=== PATIENT | female | born 1965 | race Caucasian/White ===

== ENCOUNTER 2022-01-06 10:25 | Emergency (ER) | payer OTHER, SELFPAY ==
[2022-01-06 10:29] VITALS: BP 160/88; PULSE 64; RESP 18; TEMP 36.9; O2SAT 99; BMI 59.4
--- NOTE | 2022-01-06 10:54 | CRLHL7_ITS ---
For Patients: As a result of the Century Cures Act, medical imaging exams and procedure reports are released immediately into your electronic medical record. You may view this report before your referring provider. If you have questions, please contact your health care provider. Indication: Pain and swelling. Possible foreign object. Technique: Spiral CT examination of the wrist is performed without intravenous contrast to obtain 1 millimeter thick sagittal, axial, and coronal sections. Please note that all CT scans at this facility use dose modulation, iterative reconstruction, and/or weight-based dosing when appropriate to reduce radiation dose to as low as reasonably achievable. Comparison: Plain films of the wrist from today at 0959 hours Findings: The area of swelling adjacent to the distal ulna is seen to be a combination of heterogeneous, coarse, soft tissue calcifications along with overlying subcutaneous swelling and edema. This is associated with well-circumscribed lytic destruction of the dorsal aspect of the distal ulna at the base of the ulnar styloid, extending into the ulnar styloid itself there is also well-circumscribed lucency of the ununited accessory ossification center of the ulnar styloid. I do not see any distinct radiopaque or radiolucent foreign body. The soft tissue ossifications are in a linear configuration extending from the dorsal subcutaneous tissues, along the radial aspect of the ulnar styloid and accessory ossification center of the ulnar styloid, to reach the volar juxta-articular muscle bellies. This does raise the possibility of a foreign body granuloma from a penetrating injury. The osseous destruction is consistent with low-grade osteomyelitis. No distinct drainable abscess is present. There is no sign of any soft tissue gas. There is mild widening of the scapholunate articulation, suggesting partial disruption or laxity of the scapholunate ligament. There is no sign of any additional osseous abnormality. The soft tissues elsewhere are normal in appearance. I discussed the findings with Dr. Pereira at 1212 hours on 01/06/2022. Impression: Heterogeneous, irregular, coarse calcifications of the soft tissue adjacent to the distal ulna and ulnar styloid, extending in a linear arrangement from the dorsal subcutaneous fat, along the radial aspect of the ulnar styloid, to reach the muscle belly dorsal to the distal ulna. 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 No sign of any radiopaque or radiolucent foreign body. No sign of soft tissue gas. No sign of drainable abscess. Consider low-grade chronic infection from previous penetrating injury versus unusual infection such as tuberculosis, CARMEN, were fungus. Please note that all CT scans at this facility use dose modulation, iterative reconstruction, and/or weight-based dosing when appropriate to reduce radiation dose to as low as reasonably achievable. Dictated by Dion Montalvo MD @ 01/06/2022 12:16:47 PM (Electronically Signed)
--- NOTE | 2022-01-06 10:57 | ED.GENADULT ---
HPI - General Adult General Chief complaint: Extremity Pain/Injury, Upper Stated complaint: Wrist swollen and painful, possibly septic Time Seen by Provider: 01/06/22 10:46 History of Present Illness HPI narrative: This 56-year-old female comes in with pain in her left wrist. She came from urgent care where she had an x-ray which showed soft tissue swelling but a radiologist called to the physician's therapist's assistant there stating that there appeared to be possibly some kind of osseous structure in the ulnar aspect of her left wrist. The patient comes here for further evaluation. There was a suspicion of a septic joint however she does not have any tenderness on the radial aspect of the left wrist joint. She does have a history of iritis and has been on steroid at times. There has been some suspicion in the past of rheumatologic condition underlying some of these symptoms. She does not have any history of gout. There is no report of any injury event. Related Data Home Medications Medication Instructions Recorded Confirmed metoprolol succinate 50 mg 50 mg PO DAILY 10/04/21 01/06/22 tablet,extended release 24 hr triamterene 37.5 1 tab PO DAILY 10/04/21 01/06/22 mg-hydrochlorothiazide 25 mg tablet Previous Rx's Medication Instructions Recorded gemfibrozil 600 mg tablet 600 mg PO BID Hyperlipidemia #180 10/09/21 tabs methylprednisolone 4 mg tablets in See Rx Instructions PO PER PKG DIR 10/10/21 a dose pack (Medrol (Pankaj)) Iritis #21 ea sulfamethoxazole 800 1 tab PO BID UTI #10 tabs 10/10/21 mg-trimethoprim 160 mg tablet (Bactrim DS) ketorolac 10 mg tablet 10 mg PO Q8H 5 days #15 tabs 01/06/22 methylprednisolone 4 mg tablets in See Rx Instructions PO .COMPLEX 01/06/22 a dose pack (Medrol (Pankaj)) #21 ea Allergies Allergy/AdvReac Type Severity Reaction Status Date / Time cephalexin Allergy Mild itchy, rash Verified 01/06/22 09:39 nitrofurantoin AdvReac Severe throat Verified 01/06/22 09:39 swelling Review of Systems Status of ROS: Reports: 10 or more systems reviewed and unremarkable except as noted in History and below Narrative: Constitutional: No fevers, no weight gain or loss. Eyes: No discharge. No vision changes. HENT: No congestion, no sore throat, no ear pain. Cardiovascular: No chest pain, no palpitations. Respiratory: No shortness of breath, no wheezes, no cough. Gastrointestinal: No abdominal pain, no vomiting, no diarrhea. Genitourinary: No dysuria, no hematuria. Musculoskeletal: Left wrist pain and swelling on the ulnar aspect with decreased range of motion. Skin: No rashes, no pruritis. Neurological: No dizziness, weakness, sensory change, speech change. Endo/Heme/Allergies: No bruising or bleeding. No polydipsia. Pysch: no suicidality, no anxiety, no insomnia. All other systems reviewed and are negative. [facility] Medical History (Updated 01/06/22 @ 12:41 by Sandoval Krishnan MD) UTI (urinary tract infection) Family History (Updated 09/24/21 @ 13:51 by Shahzad Reyna) Other Colon cancer Social History Smoking Status: Never smoker Do you use any of these nicotine containing products: None Second hand tobacco smoke exposure: No How often do you have a drink containing alcohol: never How often do you have six or more drinks on one occasion: Never AUDIT-C Alcohol total score: 0 Non-prescribed substance use: denies use Exam Narrative: Exam Narrative: Constitutional: Well-developed, well-nourished, no acute distress. HEENT: Normocephalic, atraumatic. Neck: Normal range of motion. Nontender. Supple. Heart: Intact distal pulses. Lungs: No chest discomfort. No wheezes, rhonchi, or rales. Abdomen: Nontender. Back: Normal range of motion. Extremities: Mild swelling and erythema of the ulnar aspect of the left wrist with associated decreased range of motion. Skin: Intact. No rash. Warm. No erythema or pallor. Neurologic: No altered sensation. No weakness. Alert and oriented. Psychiatric: No suicidality. No anxiety or depression. No insomnia. Nursing notes and vitals signs are reviewed. Const: Vital Signs, click to edit/add: Vital Signs - 24 hr 01/06/22 10:29 Temperature 98.4 F Pulse Rate [Pulse Oximeter] 64 Respiratory Rate 18 Blood Pressure [Ri ght Upper Arm] 160/88 H Pulse Oximetry 99 Oxygen Delivery Me thod Room Air Course Vital Signs Vital signs: Initial Vital Signs Temperature 98.4 F 01/06/22 10:29 Temperature Source Temporal Artery Scan 01/06/22 10:29 Pulse Rate 64 01/06/22 10:29 Respiratory Rate 18 01/06/22 10:29 Blood Pressure 160/88 H 01/06/22 10:29 Blood Pressure Mean 112 01/06/22 10:29 Blood Pressure Position Supine 01/06/22 10:29 Pulse Oximetry 99 01/06/22 10:29 Oxygen Delivery Method 01/06/22 10:29 Vital Signs Temperature 98.4 F 01/06/22 10:29 Pulse Rate 64 01/06/22 10:29 Respiratory Rate 18 01/06/22 10:29 Blood Pressure 160/88 H 01/06/22 10:29 Pulse Oximetry 99 01/06/22 10:29 Oxygen Delivery Method 01/06/22 10:29 Temperature 98.4 F 01/06/22 10:29 Pulse Rate 64 01/06/22 10:29 Respiratory Rate 18 01/06/22 10:29 Blood Pressure 160/88 H 01/06/22 10:29 Pulse Oximetry 99 01/06/22 10:29 Oxygen Delivery Method 01/06/22 10:29 Medical Decision Making MDM Narrative Medical decision making narrative: This patient comes in with pain in the ulnar aspect of her left wrist. She was seen in urgent care and sent here for further evaluation and treatment. She did not have any tenderness on the radial aspect. A joint infection or septic joint would spread through the joint and typically involve the radial aspect along with the ulnar side of the joint. Lab results returned with normal findings except for elevated uric acid level which would explain her symptoms as coming from gout. This is a new diagnosis for her. She did receive prescriptions for Medrol Dosepak and Toradol. I advised her regarding the pathophysiology of gout and instructed her on diet issues related to this. Lab Data Labs: Lab Results 01/06/22 01/06/22 01/06/22 Range/Units 11:00 11:00 11:00 WBC 7.85 (4.50-11.00) K/uL RBC 4.29 (4.00-5.20) m/uL Hgb 13.1 (12.0-16.0) gm/dL Hct 38.5 (33.0-51.0) % MCV 90 (80-100) fL MCH 31 (26-34) pg MCHC 34 (32-36) gm/dL RDW Coeff of Kala 11.8 (11.5-15.5) % Plt Count 296 (140-440) K/uL Neut % (Auto) 61.5 (42.0-72.0) % Lymph % (Auto) 26.2 (20-44) % Brantley % (Auto) 10.2 (0.0-11.0) % Eos % (Auto) 1.5 (0.0-7.0) % Baso % (Auto) 0.3 (0.0-3.0) % Neut # (Auto) 4.83 (1.7-7.0) K/uL Lymph # (Auto) 2.06 (0.90-2.90) K/uL Brantley # (Auto) 0.80 (0.00-0.90) K/UL Eos # (Auto) 0.12 (0.00-0.50) K/uL Baso # (Auto) 0.02 (0.00-0.30) K/uL Abs Immat Gran (auto) 0.02 (0.00-0.30) K/uL ESR 18 (2-20) mm/hr Sodium 139 (135-149) mmol/L Potassium 3.9 (3.6-5.1) mmol/L Chloride 98 (96-114) mmol/L Carbon Dioxide 28 (20-32) mmol/L BUN 20 (7-30) mg/dL Creatinine 0.6 (0.5-1.5) mg/dL Estimated Creat Clear 84.54 Estimated GFR 104 ml/min Glucose 101 (60-115) mg/dL Uric Acid 10.1 H (2.2-8.4) mg/dL Calcium 10.1 (8.4-10.6) mg/dL Imaging Data CT L Wrist: Radiologist's impression: Heterogeneous, irregular, coarse calcifications of the soft tissue adjacent to the distal ulna and ulnar styloid, extending in a linear arrangement from the dorsal subcutaneous fat, along the radial aspect of the ulnar styloid, to reach the muscle belly dorsal to the distal ulna. 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 No sign of any radiopaque or radiolucent foreign body. No sign of soft tissue gas. No sign of drainable abscess. Consider low-grade chronic infection from previous penetrating injury versus unusual infection such as tuberculosis, CARMEN, were fungus. Please note that all CT scans at this facility use dose modulation, iterative reconstruction, and/or weight-based dosing when appropriate to reduce radiation dose to as low as reasonably achievable. Discharge Plan Discharge Clinical Impression: Gout Patient Disposition: Home, Self-Care Condition: Stable Additional Instructions: Take medications as prescribed. Follow up with MD or return if worsening. Review reputable literature regarding diet suggestions regarding gout. Prescriptions: New ketorolac 10 mg tablet 10 mg PO Q8H 5 Days Qty: 15 0RF methylprednisolone [Medrol (Pankaj)] 4 mg tablets,dose pack See Rx Instructions .ROUTE .COMPLEX Qty: 21 0RF Rx Instructions: orally per package directions No Action sulfamethoxazole-trimethoprim [Bactrim DS] 800-160 mg tablet 1 tab PO BID Qty: 10 0RF methylprednisolone [Medrol (Pankaj)] 4 mg tablets,dose pack See Rx Instructions PO PER PKG DIR Qty: 21 2RF Rx Instructions: PO PER PKG DIR metoprolol succinate 50 mg tablet extended release 24 hr 50 mg PO DAILY triamterene-hydrochlorothiazid 37.5-25 mg tablet 1 tab PO DAILY gemfibrozil 600 mg tablet 600 mg PO BID Qty: 180 3RF Follow Up/Referrals: Charli Almanzar MD [Primary Care Provider] - Stand Alone Forms: [facility] [employer] Info Instructions
--- OUTSIDE RECORDS SUMMARY | 2022-01-06 11:13 | XMS_ITS | Encounter Summary ---
:1965 [facility] Address [address] [place] [address] Care Team Providers Name Role Phone Needs Pcp, Assignment Primary Care Provider Reason for Visit Reason Comments Follow-up Encounter Details Date Type Department Care Team Description 07/26/2021 Office Visit Trevor Burgos MD Iritis (Primary Dx); Rheumatology [address] [place] [address] Chronic bilateral low back p ain without sciatica [address] [place] [address] [place], [place] [phone] (Wo rk) Social History Tobacco Use Types Packs/Day Years Used Date Smoking Tobacco: Never Smokeless Tobacco: Never Sex Assigned at Date Recorded Not on file documented as of this encounter Patient Instructions Patient InstructionsTrevor Sahni MD - 07/26/2021 10:48 AM CDT History of recurrent iritis. Recent rheumatologic workup was unremarkable other than mild elevation of sedimentation rate which most likely secondary to persistent anemia. Recent imaging studies of the lumbar spine and sacroiliac shows mild degenerative changes of the lumbar spine. No signs of inflammatory spondyloarthritis. At this time suspect the the chronic recurrent iritis is localized and idiopathic/unknown etiology. Clinically there is a low suspicion for any systemic inflammatory spondyloarthritis. Presence mild degenerative changes/osteoarthritis. In regards to osteoarthritis the main treatment is symptomatic management. Recommend using NSAIDs ibuprofen or Aleve as needed pain. Warm therapy. If patient develops chronic recurrent iritis with persistent symptoms and the need for systemic steroid at that time we may consider immunosuppressive therapy with methotrexate, Imuran, Humira as a steroid sparing agent. Recommend a follow-up appointment in 6-7 months with me or sooner if patient develops any joint swelling or recurrent iritis. documented in this encounter Progress Notes Trevor Sahni MD - 07/26/2021 10:30 AM CDT Rheumatology Follow up Note Chief Complaint Patient presents with ??? Follow-up HPI: Sugar Fulton is a 55 y.o. female with medical history as stated below was recently seen with a clinical presentation chronic recurrent iritis in the last 2 years and recent low back pain. Was recently treated with a short course of prednisone by the PCP with improvement in her iritis andthe lower back. A suspicion for an inflammatory spondyloarthritis was highly in the differential diagnosis. Her rheumatologic workup was unremarkable including negative HLA B27 done outside [facility]. Patient is coming today for follow-up. She feels normal, at baseline. Denies any red hot swollen joints. The back symptoms have resolved. Denies any signs recurrent iritis. Was recently seen by the Ophthalmology and it was documented that there is no signs of active inflammation. Patient Active Problem List Diagnosis ??? Iritis ??? Hypertriglyceridemia (HRC) History reviewed. No pertinent past medical history. History reviewed. No pertinent surgical history. Outpatient Encounter Medications as of 07/26/2021 Medication Sig Dispense Refill ??? gemfibrozil (LOPID) 600 MG tablet Take 1 Tablet by mouth two times a day. ??? metoprolol succinate (TOPROL XL) 50 MG 24 hour release tablet Take 50 mg by mouth daily. ??? triamterene-hydrochlorothiazide (MAXZIDE-25) 37.5-25 MG tablet Take 1 Tablet by mouth daily. No facility-administered encounter medications on file as of 07/26/2021. Allergies Allergen Reactions ??? Nitrofurantoin Rash and Anaphylaxis Swelling and rash ??? Cephalexin Rash and Other, see comments Dizzy, felt ill, and very emotional Social History Substance and Sexual Activity Alcohol Use None Social History Tobacco Use Smoking Status Never Smoker Smokeless Tobacco Never Used EXAM General Appearance: Pleasant, alert, appropriate appearance for age. No acute distress HEENT Exam: Normocephalic, atraumatic, clear sclera. Neck Exam: Supple, no masses or nodes. Musculoskeletal Exam: Normal muscle bulk. Mild osteoarthritic changes in her hands. No signs of active synovitis. No joint effusion. Full range of motion in all 4 extremities. Normal muscle strength inall 4 extremities. Skin: no rash Neurologic Exam: Nonfocal, normal gross motor movement, tone, and coordination. No tremor. Lab: Lab Results Component Value Date WBC 9.2 06/28/2021 RBC 3.29 (L) 06/28/2021 Hemoglobin 10.1 (L) 06/28/2021 HCT 29.9 (L) 06/28/2021 MCV 90.9 06/28/2021 RDW 11.6 (L) 06/28/2021 Platelets 455 (H) 06/28/2021 Lab Results Component Value Date AST (SGOT) 18 06/28/2021 Lab Results Component Value Date Creatinine 0.70 06/28/2021 Assessment and Plan: Recent blood work, normal kidney function, mild anemia hemoglobin 10.1, normal WBC, mild elevation platelet 455, mild elevation of ESR 39, normal LFTs, normal CRP. X-ray of the SI joint reviewed by me was unremarkable. X-ray of the lumbar spine shows mild degenerative changes of the facet joints. History of recurrent iritis. Recently was complaining of chronic low back pain. [place] better after a short course of prednisone tapering dose. Presence of anemia which per patient has been chronic. Recent rheumatologic workup was unremarkable other than mild elevation of sedimentation rate which most likely is secondary to persistent anemia. Negative HLA B27 done outside [facility]. Recent imaging studies of the lumbar spine and sacroiliac show mild degenerative changes of the lumbar spine. No signs of inflammatory spondyloarthritis. At this time suspect the the chronic recurrent iritis is localized and idiopathic/unknown etiology. Clinically there is a low suspicion for any systemic inflammatory spondyloarthritis. Presence mild degenerative changes/osteoarthritis in the hands and in the lumbar spine. In regards to osteoarthritis the main treatment is symptomatic management. Recommend using NSAIDs ibuprofen or Aleve as needed pain. Warm therapy. If patient develops chronic recurrent iritis with persistent symptoms and the need for systemic steroid at that time we may consider immunosuppressive therapy with methotrexate, Imuran or Humira as a steroid sparing agent. Recommend a follow-up appointment in 6-7 months with me or sooner if patient develops any joint swelling or recurrent iritis. Total of 30 minutes was spent reviewing previous medical records, consulting patient and charting. Trevor Pérez MD Rheumatology Zaira Moffett 07/26/2021 This note consists of symbols derived from keyboarding, and voice recognition software. As a result,wrong word or '[id number]' substitutions may have occurred due to the inherent limitations of voice recognition software. There may be errors in the script that have gone undetected. Please consider this when interpreting information found in this chart. documented in this encounter Plan of Treatment Upcoming Encounters Date Type Specialty Care Team Description 01/28/2022 Appointment [facility] [address] [facility] [facility] [id number] (Wo rk) documented as of this encounter Visit Diagnoses Diagnosis Iritis - Primary Unspecified iridocyclitis Chronic bilateral low back pain without sciatica documented in this encounter Care Teams Bottom Turner Relationship Specialty Start Date End Date Needs Pcp, Assignment PCP - General 06/28/21 [place], [place] [address] documented as of this encounter
--- OUTSIDE RECORDS SUMMARY | 2022-01-06 11:13 | XMS_ITS | Encounter Summary ---
:1965 [facility] Address [address] [place] [address] Care Team Providers Name Role Phone Needs Pcp, Assignment Primary Care Provider Encounter Details Date Type Department Care Team Description 12/18/2021 Telephone [facility] 3900 Self-Referral, Patient , Ophthalmology [address] [address] [place], [place] [id number] Social History Tobacco Use Types Packs/Day Years Used Date Smoking Tobacco: Never Smokeless Tobacco: Never Sex Assigned at Date Recorded Not on file documented as of this encounter Nursing Notes Debbie Devine - 12/18/2021 1:50 PM CDT Faxed 12/18/21 @ 1:51pm Ashely Odonnell - 12/18/2021 1:35 PM CDT Please refax the current Gls RX - they received one for a different Pt [phone] Fax Thank you Martha Thompson - 12/18/2021 1:00 PM CDT Please fax most recent glasses Rx to [phone]. Patient is waiting at optical store. documented in this encounter Plan of Treatment Upcoming Encounters Date Type Specialty Care Team Description 01/28/2022 Appointment Rheumatology Trevor Sahni MD [address] [place] [id number] (Wo rk) documented as of this encounter Visit Diagnoses Not on filedocumented in this encounter Care Teams [employer] Relationship Specialty Start Date End Date Needs Pcp, Assignment PCP - General 06/28/21 [address] [place] [place] [address] documented as of this encounter
--- OUTSIDE RECORDS SUMMARY | 2022-01-06 11:13 | XMS_ITS | Encounter Summary ---
:1965 Author [facility] Address [address] [place] [address] Care Team Providers Name Role Phone Needs Pcp, Assignment Primary Care Provider Reason for Visit Reason Comments Referral Encounter Details Date Type Department Care Team Description 06/29/2021 Telephone [facility] 3902 Self-Referral, Patient , Referral Ophthalmology [address] [place] [address] [place] [address] Social History Tobacco Use Types Packs/Day Years Used Date Smoking Tobacco: Never Smokeless Tobacco: Never Sex Assigned at Date Recorded Not on file documented as of this encounter Nursing Notes Marianne Payne - 06/29/2021 11:18 AM CDT Patient is ref and is wanting to wait until Friday due to work and she lives in [place]. She is setting care up for Iritis. Using pred only at flare ups Lux Vela - 06/29/2021 11:04 AM CDT Sugar Fulton has an urgent referral for Pt with hx of recurent iritis, possible inflammatory spondyloarthritis. Recent flare of iritis RE. Patient has not yet contacted the eye department. This note was generated from the referral queue. documented in this encounter Plan of Treatment Upcoming Encounters Date Type Specialty Care Team Description 01/28/2022 Appointment Rheumatology Trevor Sahni MD [address] [facility] [place] [address] (Wo rk) documented as of this encounter Visit Diagnoses Not on filedocumented in this encounter Care Teams Associate Director Relationship Specialty Start Date End Date Needs Pcp, Assignment PCP - General 06/28/21 [place] [address] documented as of this encounter
--- OUTSIDE RECORDS SUMMARY | 2022-01-06 11:13 | XMS_ITS | Encounter Summary ---
:1965 Author Organization [facility] Address [address], [place] [address] Care Team Providers Name Role Phone Needs Pcp, Assignment Primary Care Provider Reason for Visit Procedure/Equipment (Routine) - Incomplete Specialty Diagnoses / Procedures Referred By Contact Refer red To Contact Diagnoses Iritis Inflammatory spondylopathy of sacral region (HRC) Trevor Sahni MD Procedures XR Sacroilliac Joints 3+ Views [address] [place], [place] [address] Referral ID Status Reason Start Date Expiration Date Visits V isits Requested Authorized [id number] Incomplete 06/28/2021 09/27/2022 1 1 Encounter Details Date Type Department Care Team Description 06/28/2021 Ancillary [place] Trevor Sahni MD Iritis; Procedure Radiology [address] [place] Inflammatory spondylopathy o f sacral region (HRC) [address] [facility] [id number] [phone] Social History Tobacco Use Types Packs/Day Years Used Date Smoking Tobacco: Never Smokeless Tobacco: Never Sex Assigned at Date Recorded Not on file documented as of this encounter Plan of Treatment Upcoming Encounters Date Type Specialty Care Team Description 01/28/2022 Appointment Rheumatology Trevor Sahni MD [address] [facility] N [id number] (Wo rk) documented as of this encounter Procedures Procedure Name Priority Date/Time Associated Diagnosis Comme nts XR SACROILLIAC Routine 06/28/2021 3:02 PM Iritis Results for this JOINTS 3+ VIEWS CDT Inflammatory procedure ar e in spondylopathy of the results sacral region (HRC) section. documented in this encounter Results XR Sacroilliac Joints 3+ Views (06/28/2021 3:02 PM CDT) Anatomical Region Laterality Modality Pelvis Digital Radiography Specimen (Source) Anatomical Collection Method Collection Time Re ceived Time Location / / Volume Laterality 06/28/2021 2:47 PM CDT Impressions 06/28/2021 3:04 PM CDT COMPARISON: ??None. FINDINGS: ?? Lumbar spine: No evidence of acute fract ure or subluxation. Mild degenerative disease at L2-3. No evidence of ankylosing spondylitis. Sacroiliac joints: Unremarkable appearan ce of the sacroiliac joints without evidence of sacroiliitis. No acute fracture or dislocation. Tubal ligation devices in the pelvis. Procedure Note Lux Rogers MD - 06/28/2021Fo rmatting of this note might be different from the original. IMPRESSION COMPARISON: None. FINDINGS: Lumbar spine: No evidence of acute fract ure or subluxation. Mild degenerative disease at L2-3. No evidence of ankylosing spondylitis. Sacroiliac joints: Unremarkable appearan ce of the sacroiliac joints without evidence of sacroiliitis. No acute fracture or dislocation. Tubal ligation devices in the pelvis. Trevor Sahni MD RAD GD XR Lumbar Spine AP/Lat Views (06/28/2021 3:01 PM CDT) Anatomical Region Laterality Modality Spine, L-Spine Digital Radiography Specimen (Source) Anatomical Collection Method Collection Time Re ceived Time Location / / Volume Laterality 06/28/2021 2:47 PM CDT Impressions 06/28/2021 3:04 PM CDT COMPARISON: ??None. FINDINGS: ?? Lumbar spine: No evidence of acute fract ure or subluxation. Mild degenerative disease at L2-3. No evidence of ankylosing spondylitis. Sacroiliac joints: Unremarkable appearan ce of the sacroiliac joints without evidence of sacroiliitis. No acute fracture or dislocation. Tubal ligation devices in the pelvis. Procedure Note Lux Rogers MD - 06/28/2021Fo rmatting of this note might be different from the original. IMPRESSION COMPARISON: None. FINDINGS: Lumbar spine: No evidence of acute fract ure or subluxation. Mild degenerative disease at L2-3. No evidence of ankylosing spondylitis. Sacroiliac joints: Unremarkable appearan ce of the sacroiliac joints without evidence of sacroiliitis. No acute fracture or dislocation. Tubal ligation devices in the pelvis. Trevor TRINIDAD GD documented in this encounter Visit Diagnoses Diagnosis Iritis Unspecified iridocyclitis Inflammatory spondylopathy of sacral reg ion (HRC) Iritis Unspecified iridocyclitis Inflammatory spondylopathy of sacral reg ion (HRC) documented in this encounter Care Teams Manager Forensic Relationship Specialty Start Date End Date Needs Pcp, Assignment PCP - General 06/28/21 [place] [address] documented as of this encounter
--- OUTSIDE RECORDS SUMMARY | 2022-01-06 11:13 | XMS_ITS | Encounter Summary ---
:1965 Author Organization [facility] Address [address], [place] [address] Care Team Providers Name Role Phone Needs Pcp, Assignment Primary Care Provider Reason for Visit Procedure/Equipment (Routine) - Incomplete Specialty Diagnoses / Procedures Referred By Contact Refer red To Contact Diagnoses Iritis Inflammatory spondylopathy of sacral region (HRC) Trevor Sahni MD Procedures XR Lumbar Spine AP/Lat Views [address] [place], [place] [address] Referral ID Status Reason Start Date Expiration Date Visits V isits Requested Authorized [id number] Incomplete 06/28/2021 09/27/2022 1 1 Encounter Details Date Type Department Care Team Description 06/28/2021 Ancillary [place] Gal[place] MD Iritis; Procedure Radiology [address] Inflammatory spondylopathy o f sacral region (HRC) [address] [facility] [address] [phone] Social History Tobacco Use Types Packs/Day Years Used Date Smoking Tobacco: Never Smokeless Tobacco: Never Sex Assigned at Date Recorded Not on file documented as of this encounter Plan of Treatment Upcoming Encounters Date Type Specialty Care Team Description 01/28/2022 Appointment Rheumatology Trevor Sahni MD [address] [facility] N [id number] (Wo rk) documented as of this encounter Procedures Procedure Name Priority Date/Time Associated Diagnosis Comme nts XR LUMBAR SPINE Routine 06/28/2021 3:01 PM Iritis Results for this AP/LAT VIEWS CDT Inflammatory procedure are i n spondylopathy of the results sacral region (HRC) [...] the pelvis. Trevor Sahni MD RAD GD documented in this encounter Visit Diagnoses Diagnosis Iritis Unspecified iridocyclitis Inflammatory spondylopathy of sacral reg ion (HRC) Iritis Unspecified iridocyclitis Inflammatory spondylopathy of sacral reg ion (HRC) documented in this encounter Care Teams Heat Transfer Technician Relationship Specialty Start Date End Date Needs Pcp, Assignment PCP - General 06/28/21 [place] [address] documented as of this encounter
--- OUTSIDE RECORDS SUMMARY | 2022-01-06 11:13 | XMS_ITS | Encounter Summary ---
:1965 Author Organization [facility] Address [address] [place] [address] Care Team Providers Name Role Phone Needs Pcp, Assignment Primary Care Provider Reason for Referral Consult/Transfer Care (Routine) - New Request Specialty Diagnoses / Procedures Referred By Contact Refer red To Contact Diagnoses Iritis Inflammatory spondylopathy of sacral region (HRC) Trevor Sahni MD [address] [place], [place] [address] Referral ID Status Reason Start Date Expiration Date Visits V isits Requested Authorized [id number] New Request 06/28/2021 09/27/2022 1 1 Scheduling Instructions Your provider has recommended an appoint ment with [facility]. You can quickly make your appointment online at [employer]/schedule. You can also call [phone] for help scheduling yo ur appointment. We suggest you call your health insurance company about your cove rage and benefits for this appointment. Procedure/Equipment (Routine) - Incomplete Specialty Diagnoses / Procedures Referred By Contact Refer red To Contact Diagnoses Iritis Inflammatory spondylopathy of sacral region (HRC) Trevor Sahni MD Procedures XR Sacroilliac Joints 3+ Views [address] [place], [place] [address] Referral ID Status Reason Start Date Expiration Date Visits V isits Requested Authorized [id number] Incomplete 06/28/2021 09/27/2022 1 1 Procedure/Equipment (Routine) - Incomplete Specialty Diagnoses / Procedures Referred By Contact Refer red To Contact Diagnoses Iritis Inflammatory spondylopathy of sacral region (HRC) Trevor Sahni MD Procedures XR Lumbar Spine AP/Lat Views [address] [place], [place] [address] Referral ID Status Reason Start Date Expiration Date Visits V isits Requested Authorized [id number] Incomplete 06/28/2021 09/27/2022 1 1 Reason for Visit Reason Comments CONSULT Encounter Details Date Type Department Care Team Description 06/28/2021 Office Visit [place] Galvin MD Inflammatory spondylopathy of sacral reg ion (HRC) (Primary Dx); Rheumatology [address] [facility] [address] [place] [address] [place], [place] [phone] Social History Tobacco Use Types Packs/Day Years Used Date Smoking Tobacco: Never Smokeless Tobacco: Never Sex Assigned at Date Recorded Not on file documented as of this encounter Patient Instructions Patient InstructionsTrevor Sahni MD - 06/28/2021 2:18 PM CDT Patient with history of chronic recurrent iritis in the last 2 and a half years recently has been complaining of episodes of low back pain near the right SI joint area and recent iritis flare. [place] better after a short courses of systemic prednisone. A suspicion for an inflammatory spondyloarthritis with axial involvement and extra-articular manifestation with uveitis/iritis is highly in the differential diagnosis. Recommend doing blood work today to further investigate. Recommend doing x-rays of the lumbar spine and sacroiliac joints. Recommend requesting previous records from Ophthalmology. Recommend an urgent consult with ophthalmology here at [facility] to establish and coordinate thecare and assess treatment outcome in the future. Based on the test results, imaging studies and the ophthalmology evaluation will decide on the next best step in management including starting immunosuppressive therapy with Humira. Return to clinic in 3-4 weeks follow-up or sooner if needed. documented in this encounter Progress Notes Trevor Sahni MD - 06/28/2021 1:30 PM CDT Rheumatology New Patient/Consult Note Referral: PATIENT SELF REFERRAL, [place] [address] Chief Complaint Patient presents with ??? CONSULT HPI: Sugar Fulton is a 55 y.o. female with medical history as stated below presents today with a chief complaint of recurrent episodes of right eye iritis and recent low back pain near the right SI joint area. Patient has a diagnosis of iritis with the 1st flare in November of 2019, painful red eye, sensitivity to light. She was seen by Ophthalmology outside [facility]. Was treated with steroid eye dropswith good outcome. Since then she has had 9 flares in the last 2 and half years. The last flare was recently 2 weeks ago. In May also patient had a sudden left lower back pain near the right SI jointarea radiating in the gluteal area. Patient took a short course of oral prednisone twice by the PCP with improvement in her symptoms. This helpped with the iritis too. Patient has not followed with Ophthalmology in a while. Her PCP has been treating the iritis. Patient is referred to rheumatology for further evaluation and a concern for an inflammatory spondyloarthritis with axial involvement and extra-articular manifestation with iritis. Denies any other joint symptoms. Denies any history of dactylitis, inflammatory bowel disease or skin psoriasis. Denies any tendinopathy. Intermittently has fluctuation of the bowel movements predominantly loose bowel movements. She is planning to have a colonoscopy next week. Denies any blood in the stools. A few years ago had a history of transaminitis, unknown etiology. No known family history of autoimmune disease. ROS: Comprehensive review of systems form filled out by the patient for today's visit was reviewed, sent to [facility], and is as noted above and/or notable for: Hair loss, diarrhea, heartburn, difficulty sleeping, dry eyes, dry mouth. Patient Active Problem List Diagnosis ??? Iritis ??? Hypertriglyceridemia (HRC) History reviewed. No pertinent past medical history. History reviewed. No pertinent surgical history. Outpatient Encounter Medications as of 06/28/2021 Medication Sig Dispense Refill ??? gemfibrozil (LOPID) 600 MG tablet Take 1 Tablet by mouth two times a day. ??? metoprolol succinate (TOPROL XL) 50 MG 24 hour release tablet Take 50 mg by mouth daily. ??? triamterene-hydrochlorothiazide (MAXZIDE-25) 37.5-25 MG tablet Take 1 Tablet by mouth daily. No facility-administered encounter medications on file as of 06/28/2021. Allergies Allergen Reactions ??? Nitrofurantoin Rash and Anaphylaxis Swelling and rash ??? Cephalexin Rash and Other, see comments Dizzy, felt ill, and very emotional Social History Substance and Sexual Activity Alcohol Use None Social History Tobacco Use Smoking Status Never Smoker Smokeless Tobacco Never Used EXAM There were no vitals taken for this visit. General Appearance: Pleasant, alert, appropriate appearance for age. No acute distress HEENT Exam: Normocephalic, atraumatic, injected sclera bilaterally. Neck Exam: Supple, no masses or nodes. Chest/Respiratory Exam: Normal chest wall and respirations. Clear to auscultation. Cardiovascular Exam: Regular rate and rhythm, no murmur. Musculoskeletal Exam: Normal muscle bulk. No signs of active synovitis. No joint effusion. Full range of motion in all 4 extremities. Normal muscle strength in all 4 extremities. Skin: no rash Neurologic Exam: Nonfocal, normal gross motor movement, tone, and coordination. No tremor. Assessment and Plan: Was able to see her recent blood work at [facility] through patient's portal. Patient had a positive RAMU 1:160, negative SONA panel, negative SSA/SSB, negative anti [place]/HYDRAULIC SPINNER, negative dsDNA, negative HLA B27, mild elevation of ESR 28, normal TSH, negative screen for Lyme disease, negative RF, negative screen for hep C. Patient with history of chronic recurrent right iritis in the last 2 and a half years recently has been complaining of episodes of low back pain near the right SI joint area and recent iritis flare. [place] better after a short courses of systemic prednisone. A suspicion for an inflammatory spondyloarthritis with axial involvement and extra-articular manifestation with uveitis/iritis is highly in the differential diagnosis. Recommend doing blood work today to further investigate. Recommend doing x-rays of the lumbar spine and sacroiliac joints. Recommend requesting previous records from Ophthalmology. Recommend an urgent consult with ophthalmology here at [facility] to establish and coordinate thecare and assess treatment outcome in the future. Based on the test results, imaging studies and the ophthalmology evaluation will decide on the next best step in management including starting immunosuppressive therapy with Humira. Return to clinic in 3-4 weeks follow-up or sooner if needed. Thank you for letting me participate in the care of this patient. Please don't hesitate to contact me if you have any questions. Total of 60 minutes was spent reviewing previous medical records, consulting patient and charting. Tervor Sahni. Rheumatology Zaira Moffett 06/28/2021 This note consists of symbols derived from keyboarding, and voice recognition software. As a result,wrong word or '[id number]' substitutions may have occurred due to the inherent limitations of voice recognition software. There may be errors in the script that have gone undetected. Please consider this when interpreting information found in this chart. documented in this encounter Plan of Treatment Upcoming Encounters Date Type Specialty Care Team Description 01/28/2022 Appointment Rheumatology Trevor Sahni MD [address] [facility] [id number] (Wo rk) Scheduled Referrals Name Type Priority Associated Diagnoses Order S chedule Ophthalmology Referral Routine Iritis Ordered: 06/28/2021 Consult-Adult/Peds Inflammatory spondylopathy of sacral region (HRC) documented as of this encounter Results XR Sacroilliac Joints 3+ [...] the pelvis. Trevor Sahni MD RAD GD (ABNORMAL) ESR (06/28/2021 2:28 PM CDT) [facility] Method Time Signature Sedimentation Rate 39 (H) 0 - 20 06/28/2021 [place] mm/hr 3:43 PM CDT LABORATORY Specimen Anatomical Collection Method / Collection Time Recei bessy Time (Source) Location / Volume Laterality Blood Venipuncture / 06/28/2021 2:28 06/28/2021 2:28 Unknown PM CDT PM CDT Trevor Sahni MD LAB_1 Performing Organization Address City/State/ZIP Code Phon e Number [facility] [address] [place] [address] C-Reactive Protein (06/28/2021 2:28 PM CDT) P athologist Signature C-Reactive 0.7 0.0 - 0.7 06/28/2021 [place] Protein mg/dL 3:59 PM CDT LABORATORY Specimen Anatomical Collection Method / Collection Time Recei bessy Time (Source) Location / Volume Laterality Blood Venipuncture / 06/28/2021 2:28 06/28/2021 2:28 Unknown PM CDT PM CDT Trevor Sahni MD LAB_1 Performing Organization Address City/[facility] Code Phon e Number [place] [facility] [address] [place] [address] (ABNORMAL) CBC -No Diff (06/28/2021 2:28 PM CDT) Patholo gist Method Time Signature WBC 9.2 3.5 - 10.5 06/28/2021 [place] x10(9)/L 3:08 PM CDT LABORATORY RBC 3.29 (L) 3.90 - 06/28/2021 [place] 5.03 3:08 PM CDT LABORATORY x10(12)/L Hemoglobin 10.1 (L) 12.0 - 06/28/2021 [place] 15.5 g/dL 3:08 PM CDT LABORATORY HCT 29.9 (L) 34.9 - 06/28/2021 [place] 44.5 % 3:08 PM CDT LABORATORY MCV 90.9 80.0 - 06/28/2021 [place] 100.0 fL 3:08 PM CDT LABORATORY MCH 30.7 27.6 - 06/28/2021 [place] 33.3 pg 3:08 PM CDT LABORATORY MCHC 33.8 31.5 - 06/28/2021 [place] 35.2 g/dL 3:08 PM CDT LABORATORY RDW 11.6 (L) 11.9 - 06/28/2021 [place] 15.5 % 3:08 PM CDT LABORATORY Platelets 455 (H) 150 - 450 06/28/2021 [place] x10(9)/L 3:08 PM CDT LABORATORY Automated NRBC 0 <=0 /100 06/28/2021 [place] WBC 3:08 PM CDT LABORATORY Specimen Anatomical Collection Method / Collection Time Recei bessy Time (Source) Location / Volume Laterality Blood Venipuncture / 06/28/2021 2:28 06/28/2021 2:28 Unknown PM CDT PM CDT Trevor Sahni MD LAB_1 Performing Organization Address City/State/ZIP Code Phon e Number [place] [facility] [facility] [address] [place] [address] (ABNORMAL) Comp Metabolic Panel (06/28/2021 2:28 PM CDT) [facility] Method Time Signature Sodium 142 136 - 145 06/28/2021 [place] mmol/L 3:59 PM CDT LABORATORY Potassium 3.8 3.5 - 5.1 06/28/2021 [place] mmol/L 3:59 PM CDT LABORATORY Chloride 102 98 - 109 06/28/2021 [place] mmol/L 3:59 PM CDT LABORATORY CO2 27 20 - 29 06/28/2021 [place] mmol/L 3:59 PM CDT LABORATORY Anion Gap 13 7 - 16 06/28/2021 [place] mmol/L 3:59 PM CDT LABORATORY Calcium 10.4 8.4 - 10.4 06/28/2021 [place] mg/dL 3:59 PM CDT LABORATORY BUN 28 (H) 7 - 26 06/28/2021 [place] mg/dL 3:59 PM CDT LABORATORY Creatinine 0.70 0.55 - 06/28/2021 [place] 1.02 mg/dL 3:59 PM CDT LABORATORY GFR, Estimated >60 >60 06/28/2021 [place] mL/min/1.7 3:59 PM CDT LABORATORY 3m2 Alkaline 80 40 - 150 06/28/2021 [place] Phosphatase U/L 3:59 PM CDT LABORATORY AST (SGOT) 18 10 - 40 06/28/2021 [place] U/L 3:59 PM CDT LABORATORY ALT (SGPT) 20 0 - 55 U/L 06/28/2021 [place] 3:59 PM CDT LABORATORY Bilirubin, Total 0.5 0.2 - 1.2 06/28/2021 [place] mg/dL 3:59 PM CDT LABORATORY Protein, Total 8.2 6.4 - 8.3 06/28/2021 [place] g/dL 3:59 PM CDT LABORATORY Albumin 4.4 3.5 - 5.0 06/28/2021 [place] g/dL 3:59 PM CDT LABORATORY Glucose 104 (H) 70 - 100 06/28/2021 [place] mg/dL 3:59 PM CDT LABORATORY Comment: The given reference range is fo r the fasting state. Non-fasting reference range for glucose is 70 - 180 mg/dL. Hours Fasting 3 06/28/2021 3:59 PM CDT [facility] Specimen Anatomical Collection Method / Collection Time Recei bessy Time (Source) Location / Volume Laterality Blood Venipuncture / 06/28/2021 2:28 06/28/2021 2:28 Unknown PM CDT PM CDT Trevor Sahni MD LAB_1 Performing Organization Address City/State/ZIP Code Phon e Number [facility] [facility] [address] [place] [address] documented in this encounter Visit Diagnoses Diagnosis Inflammatory spondylopathy of sacral reg ion (HRC) - Primary Iritis Unspecified iridocyclitis Iritis Unspecified iridocyclitis Inflammatory spondylopathy of sacral reg ion (HRC) Iritis Unspecified iridocyclitis Inflammatory spondylopathy of sacral reg ion (HRC) documented in this encounter Care Teams Freight Broker Agent Relationship Specialty Start Date End Date Needs Pcp, Assignment PCP - General 06/28/21 [place] [address] documented as of this encounter
--- OUTSIDE RECORDS SUMMARY | 2022-01-06 11:13 | XMS_ITS | Encounter Summary ---
:1965 Author Organization Counts include 234 beds at the [facility] Address [address] [place] [address] Care Team Providers Name Role Phone Needs Pcp, Assignment Primary Care Provider Encounter Details Date Type Department Care Team Description 06/28/2021 Lab Visit [facility]; [address] [employer] Inflammatory spondylopathy o f sacral region (HRC) [place] [address] Social History Tobacco Use Types Packs/Day Years Used Date Smoking Tobacco: Never Smokeless Tobacco: Never Sex Assigned at Date Recorded Not on file documented as of this encounter Plan of Treatment Upcoming Encounters Date Type Specialty Care Team Description 01/28/2022 Appointment Rheumatology Trevor Sahni MD [address] [facility] N [id number] (Wo rk) documented as of this encounter Procedures Procedure Name Priority Date/Time Associated Diagnosis Comme nts COMP METABOLIC Routine 06/28/2021 2:28 PM Iritis Results for this PANEL CDT Inflammatory procedure are i n spondylopathy of the results sacral region (HRC) section. COMPLETE BLOOD Routine 06/28/2021 2:28 PM Iritis Results for this COUNT-NO DIFF CDT Inflammatory procedure are in spondylopathy of the results sacral region (HRC) section. C-REACTIVE PROTEIN Routine 06/28/2021 2:28 PM Iritis Results for this CDT Inflammatory procedure are i n spondylopathy of the results sacral region (HRC) section. ESR Routine 06/28/2021 2:28 PM Iritis Results for this CDT Inflammatory procedure are i n spondylopathy of the results sacral region (HRC) section. documented in this encounter Results (ABNORMAL) ESR (06/28/2021 2:28 PM CDT) Patholo gist Method Time Signature Sedimentation Rate 39 (H) 0 - 20 06/28/2021 [facility] mm/hr 3:43 PM CDT LABORATORY Specimen Anatomical Collection Method / Collection Time Recei bessy Time (Source) Location / Volume Laterality Blood Venipuncture / 06/28/2021 2:28 06/28/2021 2:28 Unknown PM CDT PM CDT Trevor Sahni MD LAB_1 Performing Organization Address [facility]/ZIP Code Phon e Number [facility] [address] [place] [address] C-Reactive Protein (06/28/2021 2:28 PM CDT) P athologist Signature C-Reactive 0.7 0.0 - 0.7 06/28/2021 [facility] Protein mg/dL 3:59 PM CDT LABORATORY Specimen Anatomical Collection Method / Collection Time Recei bessy Time (Source) Location / Volume Laterality Blood Venipuncture / 06/28/2021 2:28 06/28/2021 2:28 Unknown PM CDT PM CDT Trevor Sahni MD LAB_1 Performing Organization Address City/[facility]/ZIP Code Phon e Number [facility] [id number] [place] [address] (ABNORMAL) CBC -No Diff (06/28/2021 2:28 PM CDT) Patholo gist Method Time Signature WBC 9.2 3.5 - 10.5 06/28/2021 [facility] x10(9)/L 3:08 PM CDT LABORATORY RBC 3.29 (L) 3.90 - 06/28/2021 [facility] 5.03 3:08 PM CDT LABORATORY x10(12)/L Hemoglobin 10.1 (L) 12.0 - 06/28/2021 [facility] 15.5 g/dL 3:08 PM CDT LABORATORY HCT 29.9 (L) 34.9 - 06/28/2021 [facility] 44.5 % 3:08 PM CDT LABORATORY MCV 90.9 80.0 - 06/28/2021 [facility] 100.0 fL 3:08 PM CDT LABORATORY MCH 30.7 27.6 - 06/28/2021 [facility] 33.3 pg 3:08 PM CDT LABORATORY MCHC 33.8 31.5 - 06/28/2021 [facility] 35.2 g/dL 3:08 PM CDT LABORATORY RDW 11.6 (L) 11.9 - 06/28/2021 [facility] 15.5 % 3:08 PM CDT LABORATORY Platelets 455 (H) 150 - 450 06/28/2021 [facility] x10(9)/L 3:08 PM CDT LABORATORY Automated NRBC 0 <=0 /100 06/28/2021 [facility] WBC 3:08 PM CDT LABORATORY Specimen Anatomical Collection Method / Collection Time Recei bessy Time (Source) Location / Volume Laterality Blood Venipuncture / 06/28/2021 2:28 06/28/2021 2:28 Unknown PM CDT PM CDT Trevor Sahni MD LAB_1 Performing Organization Address City/State/ZIP Code Phon e Number [facility] [id number] [place] [address] (ABNORMAL) Comp Metabolic Panel (06/28/2021 2:28 PM CDT) [facility] gist Method Time Signature Sodium 142 136 - 145 06/28/2021 [facility] mmol/L 3:59 PM CDT LABORATORY Potassium 3.8 3.5 - 5.1 06/28/2021 [facility] mmol/L 3:59 PM CDT LABORATORY Chloride 102 98 - 109 06/28/2021 [facility] mmol/L 3:59 PM CDT LABORATORY CO2 27 20 - 29 06/28/2021 [facility] mmol/L 3:59 PM CDT LABORATORY Anion Gap 13 7 - 16 06/28/2021 [facility] mmol/L 3:59 PM CDT LABORATORY Calcium 10.4 8.4 - 10.4 06/28/2021 [facility] mg/dL 3:59 PM CDT LABORATORY BUN 28 (H) 7 - 26 06/28/2021 [facility] mg/dL 3:59 PM CDT LABORATORY Creatinine 0.70 0.55 - 06/28/2021 [facility] 1.02 mg/dL 3:59 PM CDT LABORATORY GFR, Estimated >60 >60 06/28/2021 [facility] mL/min/1.7 3:59 PM CDT LABORATORY 3m2 Alkaline 80 40 - 150 06/28/2021 [facility] Phosphatase U/L 3:59 PM CDT LABORATORY AST (SGOT) 18 10 - 40 06/28/2021 [place] U/L 3:59 PM CDT LABORATORY ALT (SGPT) 20 0 - 55 U/L 06/28/2021 [facility] 3:59 PM CDT LABORATORY Bilirubin, Total 0.5 0.2 - 1.2 06/28/2021 [facility] mg/dL 3:59 PM CDT LABORATORY Protein, Total 8.2 6.4 - 8.3 06/28/2021 [facility] g/dL 3:59 PM CDT LABORATORY Albumin 4.4 3.5 - 5.0 06/28/2021 [facility] g/dL 3:59 PM CDT LABORATORY Glucose 104 (H) 70 - 100 06/28/2021 [facility] mg/dL 3:59 PM CDT LABORATORY Comment: The given reference range is fo r the fasting state. Non-fasting reference range for glucose is 70 - 180 mg/dL. Hours Fasting 3 06/28/2021 3:59 PM CDT [facility] Specimen Anatomical Collection Method / Collection Time Recei bessy Time (Source) Location / Volume Laterality Blood Venipuncture / 06/28/2021 2:28 06/28/2021 2:28 Unknown PM CDT PM CDT Trevor Sahni MD LAB_1 Performing Organization Address City/State/ZIP Code Phon e Number [facility] [address] [place] [address] documented in this encounter Visit Diagnoses Diagnosis Iritis Unspecified iridocyclitis Inflammatory spondylopathy of sacral reg ion (HRC) documented in this encounter Care Teams Furnace Worker Relationship Specialty Start Date End Date Needs Pcp, Assignment PCP - General 06/28/21 [place] [address] documented as of this encounter
--- OUTSIDE RECORDS SUMMARY | 2022-01-06 11:13 | XMS_ITS | Encounter Summary ---
:1965 Author [facility] Address [address] [place] [address] Care Team Providers Name Role Phone Needs Pcp, Assignment Primary Care Provider Reason for Visit Reason Comments Eye Problem Consult/Transfer Care (Routine) - New Request Specialty Diagnoses / Procedures Referred By Contact Refer red To Contact Diagnoses Iritis Inflammatory spondylopathy of sacral region (HRC) Trevor Sahni MD [address] [place], [place] [address] Referral ID Status Reason Start Date Expiration Date Visits V isits Requested Authorized [id number] New Request 06/28/2021 09/27/2022 1 1 Encounter Details Date Type Department Care Team Description 07/02/2021 Office Visit Hakeem Rivas, Examinatio n of eyes and vision (Primary Dx); Ophthalmology OD Recurrent iritis of right eye; [email or web address] [place] of both eyes; [place] [address] Blvd Myopia with astigmatism and presbyopia, bilateral [phone] [place] [address] (Wo rk) Social History Tobacco Use Types Packs/Day Years Used Date Smoking Tobacco: Never Smokeless Tobacco: Never Sex Assigned at Date Recorded Not on file documented as of this encounter Progress Notes Hakeem [place], OD - 07/02/2021 2:45 PM CDT General medical assessment: Patient is alert. Basically healthy. Assessment: ICD-10-CM 1. Examination of eyes and vision Z01.00 2. 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 Discussed findings with patient and Stu. 2. Glasses Rx given. Discussed task lenses. Tears prn. Get Rx sunglasses that wrap and wear a hat outside. Consider a sleep mask due to a fan running in bedroom. Rheumatology is investigating possibility of systemic causes of inflammation driving recurrent iritis No iritis today. 3. Return to clinic as needed. 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
[2022-01-06 11:15] LABS: Basophils Absolute Auto 0.02 K/uL (0.00-0.30); Basophils Percent Auto 0.3 % (0.0-3.0); Eosinophils Absolute Auto 0.12 K/uL (0.00-0.50); Eosinophils Percent Auto 1.5 % (0.0-7.0); Hematocrit 38.5 % (33.0-51.0); Hemoglobin* 13.1 gm/dL (12.0-16.0); Immature Granulocytes Abs Auto 0.02 K/uL (0.00-0.30); Lymphocytes Absolute Auto 2.06 K/uL (0.90-2.90); Lymphocytes Percent Auto 26.2 % (20-44); Mean Corpuscular HGB Conc 34 gm/dL (32-36); Mean Corpuscular Hemoglobin 31 pg (26-34); Mean Corpuscular Volume 90 fL (80-100); Monocytes Percent Auto 10.2 % (0.0-11.0); Neutrophils Absolute Auto 4.83 K/uL (1.7-7.0); Neutrophils Percent Auto 61.5 % (42.0-72.0); Platelet Count* 296 K/uL (140-440); RDW Coefficient of Variation % 11.8 % (11.5-15.5); Red Blood Count 4.29 m/uL (4.00-5.20); White Blood Count* 7.85 K/uL (4.50-11.00)
[2022-01-06 11:16] LABS: Slide Review Reflex No
[2022-01-06 11:27] LABS: Chloride* 98 mmol/L (96-114); Potassium* 3.9 mmol/L (3.6-5.1); Sodium* 139 mmol/L (135-149)
[2022-01-06 11:30] LABS: Blood Urea Nitrogen* 20 mg/dL (7-30); Carbon Dioxide* 28 mmol/L (20-32); Creatinine* 0.6 mg/dL (0.5-1.5); Est. Creatinine Clearance* 84.54; Estimated Glomerular Filt Rate 104 ml/min; Glucose* 101 mg/dL (60-115)
[2022-01-06 11:31] LABS: Calcium* 10.1 mg/dL (8.4-10.6); Uric Acid* 10.1 mg/dL (2.2-8.4)
[2022-01-06 11:50] LABS: Erythrocyte SedimentationRate* 18 mm/hr (2-20)
== END 2022-01-06 12:48 | disposition home or self-care (01) ==
PROVIDERS: Emergency Provider Emergency Medicine Emergency Medical Services; PCP Internal Medicine
DX: M10.9 Gout, unspecified (principal)
CPT/HCPCS: 36415; 73200; 80048; 84550; 85025; 85651; 99284

== ENCOUNTER 2022-02-26 08:59 | Outpatient (CLI) | payer OTHER, SELFPAY ==
--- OUTSIDE RECORDS SUMMARY | 2022-02-26 09:13 | XMS_ITS | Encounter Summary ---
:1965 Author Organization [facility] Address [address], [place] [address] Care Team Providers Name Role Phone Needs Pcp, Assignment Primary Care Provider Reason for Visit Procedure/Equipment (Routine) - Incomplete Specialty Diagnoses / Procedures Referred By Contact Refer red To Contact Diagnoses Iritis Inflammatory spondylopathy of sacral region (HRC) Trevor Sahni MD Procedures XR Lumbar Spine AP/Lat Views [address] [place], [place] [address] Referral ID Status Reason Start Date Expiration Date Visits V isits Requested Authorized [id number] Incomplete 06/28/2021 09/27/2022 1 1 Encounter Details Date Type Department Care Team Description 06/28/2021 Ancillary [place] Trevor Sahni MD Iritis; Procedure Radiology [address] Inflammatory spondylopathy o f sacral region (HRC) [address] [facility] [address] [phone] Social History Tobacco Use Types Packs/Day Years Used Date Smoking Tobacco: Never Smokeless Tobacco: Never Sex Assigned at Date Recorded Not on file documented as of this encounter Plan of Treatment Not on filedocumented as of this encounter Procedures Procedure Name [...] (HRC) documented in this encounter Care Teams Body And Frame Technician Relationship Specialty Start Date End Date Needs Pcp, Assignment PCP - General 06/28/21 [place] [address] documented as of this encounter
--- OUTSIDE RECORDS SUMMARY | 2022-02-26 09:13 | XMS_ITS | Encounter Summary ---
:1965 Author Organization [facility] Address [address] [address] Care Team Providers Name Role Phone Needs Pcp, Assignment Primary Care Provider Reason for Visit Procedure/Equipment (Routine) - Incomplete Specialty Diagnoses / Procedures Referred By Contact Refer red To Contact Diagnoses Iritis Inflammatory spondylopathy of sacral region (HRC) Trevor Sahni MD Procedures XR Sacroilliac Joints 3+ Views [address] [place], [place] [address] Referral ID Status Reason Start Date Expiration Date Visits V isits Requested Authorized [id number] Incomplete 06/28/2021 09/27/2022 1 1 Encounter Details Date Type Department Care Team Description 06/28/2021 Ancillary [place] Trevor Sahni MD Iritis; Procedure Radiology [address] [place] Inflammatory spondylopathy o f sacral region (HRC) [address] [facility] [address] [phone] Social History Tobacco Use Types Packs/Day Years [...] (HRC) documented in this encounter Care Teams Help Desk Engineer Relationship Specialty Start Date End Date Needs Pcp, Assignment PCP - General 06/28/21 [place] [address] documented as of this encounter
--- OUTSIDE RECORDS SUMMARY | 2022-02-26 09:13 | XMS_ITS | Encounter Summary ---
:1965 Author Organization [facility] Address [address], [place] [address] Care Team Providers Name Role Phone Needs Pcp, Assignment Primary Care Provider Reason for Visit Reason Comments Follow-up Encounter Details Date Type Department Care Team Description 07/26/2021 Office Visit Trevor Burgos MD Iritis (Primary Dx); Rheumatology [address] [place] [address] Chronic bilateral low back p ain without sciatica [address] [place] [address] [place], [place] [phone] (Wo rk) Social History Tobacco Use Types [...] unremarkable including negative HLA B27 done outside [facility]. Patient is coming today for follow-up. She [...] was complaining of chronic low back pain. [place] better after a short course of prednisone tapering dose. Presence of anemia which per patient has been chronic. Recent rheumatologic workup was unremarkable other than mild elevation of sedimentation rate which most likely is secondary to persistent anemia. Negative HLA B27 done outside [facility]. Recent imaging studies of the lumbar spine [...] medical records, consulting patient and charting. Trevor Sahni. Rheumatology [facility] 07/26/2021 This note consists of symbols derived from keyboarding, and voice recognition software. As a result,wrong word or '[id number]' substitutions may have occurred due to the inherent limitations of voice recognition software. There may be errors in the script that have gone undetected. Please consider this when interpreting information found in this chart. documented in this encounter Plan of Treatment Not on filedocumented as of this encounter Visit Diagnoses Diagnosis Iritis - Primary Unspecified iridocyclitis Chronic bilateral low back pain without sciatica documented in this encounter Care Teams Parking Meter Servicer Relationship Specialty Start Date End Date Needs Pcp, Assignment PCP - General 06/28/21 [place] [address] documented as of this encounter
--- OUTSIDE RECORDS SUMMARY | 2022-02-26 09:13 | XMS_ITS | Clinical Summary ---
:1965 Author Organization [facility] Address [address] [place] [address] Care Team Providers Name Role Phone Needs Pcp, Assignment Primary Care Provider Source Comments You are receiving this document as you are listed as the primary care provider,follow-up provider, or the patient has been referred to you for consultation.This is in compliance with the Medicare and Medicaid EHR Incentive Program,which states Providers who transition their patient to another setting of careor provider of care or refers their patient to another provider of care shouldprovide summarycare record for each transition of care or referral. [employer] Allergies Active Allergy Reactions Severity Noted Date Comments Cephalexin Rash, Other, see comments Low 10/16/2007 Di zzy, felt ill, and very emotional Nitrofurantoin Rash, Anaphylaxis High 10/29/2007 Swelling and rash Medications Medication Sig Dispensed Refills Start Date End Date Status gemfibrozil (LOPID) 600 Take 1 Tablet by 0 1 Active MG tablet mouth two times a day. metoprolol succinate Take 50 mg by 0 06/09/2021 Active (TOPROL XL) 50 MG 24 mouth daily. hour release tablet triamterene-hydrochloro Take 1 Tablet by 0 2 Active thiazide (MAXZIDE-25) mouth daily. 37.5-25 MG tablet Active Problems Problem Noted Date Iritis 06/28/2021 Hypertriglyceridemia 06/28/2021 Encounters Date Type Specialty Care Team Description 12/18/2021 Telephone Ophthalmology Self-Referral, Patient, MD from Last 3 Months Immunizations Name Administration Dates Next Due Flu Vac (3+ yrs) 11/25/2008 Fluzone Qiv Multidose Vial 0.25 12/27/2020, 12/14/2018, 01/15, (6-35 Mos) 12/14/2016, 12/07/2015 Influenza IIV4 (Quadrivalent) 0.5mL 12/27/2020, 11/27/2019, 12/14/2018, (36408) 01/27/2018, 12/14/2016, 12/07/2015 Moderna (Spikevax) COVID-19, 12+ Yrs 02/05/2021, 07/05/2020, 06/09/2020 Tdap 07/09/2017 Social History Tobacco Use Types Packs/Day Years Used Date Smoking Tobacco: Never Smokeless Tobacco: Never Sex Assigned at Date Recorded Not on file Plan of Treatment Health Maintenance Due Date Last Done Comments Cervical Cancer Screening 1965 Due Colon Cancer Screening Plan 1965 Due Hep C Screening (Preventive 1965 Services) HepB (1) 1965 Mammogram 1965 HIV Screening (Preventive 1979 Services) Adult Preventive Visit 11/21/1981 Cholesterol 11/21/2008 Zoster/Shingles (1 of 2) 11/21/2013 COVID-19 Vaccine (4 - 04/02/2021 02/05/2021, 07/05/2020, Booster for Moderna series) 06/09/2020 Influenza (#1) 2021 12/27/2020, 12/27/2020, 11/27/2019, Additional history exists DTaP/Tdap/Td (2 - Tdap) 07/10/2027 07/09/2017 HepA Aged Out No longer eligib le based on patient 's age to complete this topic Hib Aged Out No longer eligib le based on patient 's age to complete this topic IPV (Polio) Aged Out No longer eligib le based on patient 's age to complete this topic MCV4 Aged Out No longer eligib le based on patient 's age to complete this topic Pneumococcal Aged Out No longer eligib le based on patient 's age to complete this topic Insurance Payer Benefit Plan / Subscriber ID Effective Dates Phone Addre ss Type Group CIGNA CIGNA [id number] 2019-Adelina [phone] [address] Commercial t 2 [place]MINIO [place]OU[place]ARY [id number] Care Teams Skidder Relationship Specialty Start Date End Date Needs Pcp, Assignment PCP - General 06/28/21 [place] [address]
--- OUTSIDE RECORDS SUMMARY | 2022-02-26 09:13 | XMS_ITS | Encounter Summary ---
:1965 Author Organization [facility] Address [address] [place] [address] Care Team Providers Name Role Phone Needs Pcp, Assignment Primary Care Provider Reason for Visit Reason Comments Referral Encounter Details Date Type Department Care Team Description 06/29/2021 Telephone [facility] [address] Self-Referral, Patient , Referral Ophthalmology [address] [facility] [address] [place], [place] [address] Social History Tobacco Use Types Packs/Day Years Used Date Smoking Tobacco: Never Smokeless Tobacco: Never Sex Assigned at Date Recorded Not on file documented as of this encounter Nursing Notes Marianne Payne - 06/29/2021 11:18 AM CDT Patient is ref and is wanting to wait until Friday due to work and she lives in [place]. She is setting care up for Iritis. [...] filedocumented as of this encounter Visit Diagnoses Not on filedocumented in this encounter Care Teams Dredge Pipeman Relationship Specialty Start Date End Date Needs Pcp, Assignment PCP - General 4/14/22 [place] [address] documented as of this encounter
--- OUTSIDE RECORDS SUMMARY | 2022-02-26 09:13 | XMS_ITS | Encounter Summary ---
:1965 Author Organization [employer] Address [address], [place] [address] Care Team Providers Name Role Phone Needs Pcp, Assignment Primary Care Provider Reason for Visit Reason Comments Eye Problem Consult/Transfer Care (Routine) - New Request Specialty Diagnoses / Procedures Referred By Contact Refer red To Contact Diagnoses Iritis Inflammatory spondylopathy of sacral region (HRC) Trevor Sahni MD [address] [place], [place] [address] Referral ID Status Reason Start Date Expiration Date Visits V isits Requested Authorized [id number] New Request 06/28/2021 09/27/2022 1 1 Encounter Details Date Type Department Care Team Description 07/02/2021 Office Visit Hakeem Rivas, Examinatio n of eyes and vision (Primary Dx); Ophthalmology OD Recurrent iritis of right eye; [address] Pinguecula of both eyes; [place] [address] Blvd Myopia with astigmatism and presbyopia, bilateral [phone] [place] [address] (Wo rk) Social History Tobacco [...] documented in this encounter Plan of Treatment Scheduled Referrals Name Type Priority Associated Diagnoses [facility] Referral Routine Iritis Ordered: 06/28/2021 Consult-Adult/Peds Inflammatory spondylopathy of sacral region (HRC) documented as of this encounter Visit Diagnoses Diagnosis Examination of eyes and vision - Primary 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
--- OUTSIDE RECORDS SUMMARY | 2022-02-26 09:13 | XMS_ITS | Encounter Summary ---
:1965 Author Organization [facility] Address [address], [place] [address] Care Team Providers Name Role Phone Needs Pcp, Assignment Primary Care Provider Encounter Details Date Type Department Care Team Description 12/18/2021 Telephone [facility] [address] Self-Referral, Patient , Ophthalmology [address] [address] [place], [place] [id number] Social History Tobacco Use Types Packs/Day Years Used Date Smoking Tobacco: Never Smokeless Tobacco: Never Sex Assigned at Date Recorded Not on file documented as of this encounter Nursing Notes Debbie Devine - 12/18/2021 1:50 PM CDT Faxed 12/18/21 @ 1:51pm Ashely Odonnell - 12/18/2021 1:35 PM CDT Please refax the current Gls RX - they received one for a different Pt [phone] Fax Thank you Martha Thompson - 12/18/2021 1:00 PM CDT Please fax most recent glasses Rx to [phone]. Patient is waiting at [employer] store. documented in this encounter Plan of Treatment Not on filedocumented as of this encounter Visit Diagnoses Not on filedocumented in this encounter Care Teams Health Technician Relationship Specialty Start Date End Date Needs Pcp, Assignment PCP - General 06/28/21 [place], [place] [address] documented as of this encounter
--- OUTSIDE RECORDS SUMMARY | 2022-02-26 09:14 | XMS_ITS | Encounter Summary ---
:1965 Author Organization [facility] Address [address] [address] Care Team Providers Name Role Phone Needs Pcp, Assignment Primary Care Provider Reason for Referral Consult/Transfer Care (Routine) - New Request Specialty Diagnoses / Procedures Referred By Contact Refer red To Contact Diagnoses Iritis Inflammatory spondylopathy of sacral region (HRC) Trevor Sahni MD [address] [place], [place] [address] Referral ID Status Reason Start Date Expiration Date Visits V isits Requested Authorized [id number] New Request 06/28/2021 09/27/2022 1 1 Scheduling Instructions Your provider has recommended an appoint ment with [facility]. You can quickly make your appointment online at [employer]/schedule. You can also call [phone] for help scheduling yo ur appointment. We suggest you call your health insurance company about your cove rage and benefits for this appointment. Procedure/Equipment (Routine) - Incomplete Specialty Diagnoses / Procedures Referred By Contact Refer red To Contact Diagnoses Iritis Inflammatory spondylopathy of sacral region (HRC) Trevor Sahni MD Procedures XR Sacroilliac Joints 3+ Views [address] [place], [place] [address] Referral ID Status Reason Start Date Expiration Date Visits V isits Requested Authorized [id number] Incomplete 06/28/2021 09/27/2022 1 1 Procedure/Equipment (Routine) - Incomplete Specialty Diagnoses / Procedures Referred By Contact Refer red To Contact Diagnoses Iritis Inflammatory spondylopathy of sacral region (HRC) Trevor Sahni MD Procedures XR Lumbar Spine AP/Lat Views [address] [place], [place] [address] Referral ID Status Reason Start Date Expiration Date Visits V isits Requested Authorized [id number] Incomplete 06/28/2021 09/27/2022 1 1 Reason for Visit Reason Comments CONSULT Encounter Details Date Type Department Care Team Description 06/28/2021 Office Visit [place] Trevor Sahni MD Inflammatory spondylopathy of sacral reg ion (HRC) (Primary Dx); Rheumatology [address] [place] [address] [place] [address] [place], [place] [phone] Social History Tobacco Use Types Packs/Day Years [...] SI joint area and recent iritis flare. [place] better after a short courses of systemic prednisone. A suspicion for an inflammatory spondyloarthritis with axial involvement and extra-articular manifestation with uveitis/iritis is highly in the differential diagnosis. Recommend doing blood work today to further investigate. Recommend doing x-rays of the lumbar spine and sacroiliac joints. Recommend requesting previous records from Ophthalmology. Recommend an urgent consult with ophthalmology here at [facility] to establish and coordinate thecare and assess [...] New Patient/Consult Note Referral: PATIENT SELF REFERRAL, [place] [address] Chief Complaint Patient presents with ??? CONSULT [...] light. She was seen by Ophthalmology outside [facility]. Was treated with steroid eye dropswith good [...] for today's visit was reviewed, sent to [facility], and is as noted above and/or notable [...] to see her recent blood work at [facility] through patient's portal. 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 Patient with history of chronic recurrent right iritis in the last 2 and a half years recently has been complaining of episodes of low back pain near the right SI joint area and recent iritis flare. [place] better after a short courses of systemic prednisone. A suspicion for an inflammatory spondyloarthritis with axial involvement and extra-articular manifestation with uveitis/iritis is highly in the differential diagnosis. Recommend doing blood work today to further investigate. Recommend doing x-rays of the lumbar spine and sacroiliac joints. Recommend requesting previous records from Ophthalmology. Recommend an urgent consult with ophthalmology here at [facility] to establish and coordinate thecare and assess [...] consulting patient and charting. Trevor Sahni. Rheumatology [facility] 06/28/2021 This note consists of symbols derived from keyboarding, and voice recognition software. As a result,wrong word or '[id number]' substitutions may have occurred due to the inherent limitations of voice recognition software. There may be errors in the script that have gone undetected. Please consider this when interpreting information found in this chart. documented in this encounter Plan of Treatment Scheduled Referrals Name Type Priority Associated Diagnoses Order S [facility] Ophthalmology Referral Routine Iritis Ordered: 06/28/2021 Consult-Adult/Peds [...] GD (ABNORMAL) ESR (06/28/2021 2:28 PM CDT) [facility] Method Time Signature Sedimentation Rate 39 (H) 0 - 20 06/28/2021 [facility] mm/hr 3:43 PM CDT LABORATORY Specimen Anatomical Collection Method / Collection Time Recei bessy Time (Source) Location / Volume Laterality Blood Venipuncture / 06/28/2021 2:28 06/28/2021 2:28 Unknown PM CDT PM CDT Trevor Sahni MD LAB_1 Performing Organization Address City/State/ZIP Code Phon e Number [facility] [address] [place] [address] C-Reactive Protein (06/28/2021 2:28 PM CDT) P athologist Signature C-Reactive 0.7 0.0 - 0.7 06/28/2021 [facility] Protein mg/dL 3:59 PM CDT LABORATORY Specimen Anatomical Collection Method / Collection Time Recei bessy Time (Source) Location / Volume Laterality Blood Venipuncture / 06/28/2021 2:28 06/28/2021 2:28 Unknown PM CDT PM CDT Trevor Sahni MD LAB_1 Performing Organization Address City/State/ZIP Code Phon e Number [facility] [address] [place] [address] (ABNORMAL) CBC -No Diff (06/28/2021 2:28 PM CDT) Patholo gist Method Time Signature WBC 9.2 3.5 - 10.5 06/28/2021 [facility] x10(9)/L 3:08 PM CDT LABORATORY RBC 3.29 (L) 3.90 - 06/28/2021 [facility] 5.03 3:08 PM CDT LABORATORY x10(12)/L Hemoglobin 10.1 (L) 12.0 - 06/28/2021 [facility] 15.5 g/dL 3:08 PM CDT LABORATORY HCT 29.9 (L) 34.9 - 06/28/2021 [facility] 44.5 % 3:08 PM CDT LABORATORY MCV 90.9 80.0 - 06/28/2021 [facility] 100.0 fL 3:08 PM CDT LABORATORY MCH 30.7 27.6 - 06/28/2021 [facility] 33.3 pg 3:08 PM CDT LABORATORY MCHC 33.8 31.5 - 06/28/2021 [facility] 35.2 g/dL 3:08 PM CDT LABORATORY RDW 11.6 (L) 11.9 - 06/28/2021 [facility] 15.5 % 3:08 PM CDT LABORATORY Platelets 455 (H) 150 - 450 06/28/2021 [facility] x10(9)/L 3:08 PM CDT LABORATORY Automated NRBC 0 <=0 /100 06/28/2021 [facility] WBC 3:08 PM CDT LABORATORY Specimen Anatomical Collection Method / Collection Time Recei bessy Time (Source) Location / Volume Laterality Blood Venipuncture / 06/28/2021 2:28 06/28/2021 2:28 Unknown PM CDT PM CDT Trevor Sahni MD LAB_1 Performing Organization Address City/State/ZIP Code Phon e Number [facility] [address] [place] [address] (ABNORMAL) Comp Metabolic Panel (06/28/2021 2:28 PM CDT) [facility] Method Time Signature Sodium 142 136 - 145 06/28/2021 [facility] mmol/L 3:59 PM CDT LABORATORY Potassium 3.8 3.5 - 5.1 06/28/2021 [facility] mmol/L 3:59 PM CDT LABORATORY Chloride 102 98 - 109 06/28/2021 [facility] mmol/L 3:59 PM CDT LABORATORY CO2 27 20 - 29 06/28/2021 [facility] mmol/L 3:59 PM CDT LABORATORY Anion Gap 13 7 - 16 06/28/2021 [facility] mmol/L 3:59 PM CDT LABORATORY Calcium 10.4 8.4 - 10.4 06/28/2021 [facility] mg/dL 3:59 PM CDT LABORATORY BUN 28 (H) 7 - 26 06/28/2021 [facility] mg/dL 3:59 PM CDT LABORATORY Creatinine 0.70 0.55 - 06/28/2021 [facility] 1.02 mg/dL 3:59 PM CDT LABORATORY GFR, Estimated >60 >60 06/28/2021 [facility] mL/min/1.7 3:59 PM CDT LABORATORY 3m2 Alkaline 80 40 - 150 06/28/2021 [facility] Phosphatase U/L 3:59 PM CDT LABORATORY AST (SGOT) 18 10 - 40 06/28/2021 [facility] U/L 3:59 PM CDT LABORATORY ALT (SGPT) 20 0 - 55 U/L 06/28/2021 [facility] 3:59 PM CDT LABORATORY Bilirubin, Total 0.5 0.2 - 1.2 06/28/2021 [facility] mg/dL 3:59 PM CDT LABORATORY Protein, Total 8.2 6.4 - 8.3 06/28/2021 [facility] g/dL 3:59 PM CDT LABORATORY Albumin 4.4 3.5 - 5.0 06/28/2021 [facility] g/dL 3:59 PM CDT LABORATORY Glucose 104 (H) 70 - 100 06/28/2021 [facility] mg/dL 3:59 PM CDT LABORATORY Comment: The given reference range is fo r the fasting state. Non-fasting reference range for glucose is 70 - 180 mg/dL. Hours Fasting 3 06/28/2021 3:59 PM CDT [facility] Specimen Anatomical Collection Method / Collection Time Recei bessy Time (Source) Location / Volume Laterality Blood Venipuncture / 06/28/2021 2:28 06/28/2021 2:28 Unknown PM CDT PM CDT Trevor Sahni MD LAB_1 Performing Organization Address City/State/ZIP Code Phon e Number [facility] [address] [place] [address] documented in this encounter Visit Diagnoses Diagnosis Inflammatory spondylopathy of sacral reg ion (HRC) - Primary Iritis Unspecified iridocyclitis Iritis Unspecified iridocyclitis Inflammatory spondylopathy of sacral reg ion (HRC) Iritis Unspecified iridocyclitis Inflammatory spondylopathy of sacral reg ion (HRC) documented in this encounter 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
--- OUTSIDE RECORDS SUMMARY | 2022-02-26 09:14 | XMS_ITS | Encounter Summary ---
:1965 Author Organization Counts include 234 beds at the [facility] Address [address] [place] [address] Care Team Providers Name Role Phone Needs Pcp, Assignment Primary Care Provider Encounter Details Date Type Department Care Team Description 06/28/2021 Lab Visit [facility]; [id number] [employer] Inflammatory spondylopathy o f sacral region (HRC) [place] [address] Social History Tobacco Use Types [...] Results (ABNORMAL) ESR (06/28/2021 2:28 PM CDT) [facility] Method Time Signature Sedimentation Rate 39 (H) 0 - 20 06/28/2021 [facility] mm/hr 3:43 PM CDT LABORATORY Specimen Anatomical Collection Method / Collection Time Recei bessy Time (Source) Location / Volume Laterality Blood Venipuncture / 06/28/2021 2:28 06/28/2021 2:28 Unknown PM CDT PM CDT Trevor Sahni MD LAB_1 Performing Organization Address City/State/ZIP Code Phon e Number [facility] [address] [place] [address] C-Reactive Protein (06/28/2021 2:28 PM CDT) P athologist Signature C-Reactive 0.7 0.0 - 0.7 06/28/2021 [facility] Protein mg/dL 3:59 PM CDT LABORATORY Specimen Anatomical Collection Method / Collection Time Recei bessy Time (Source) Location / Volume Laterality Blood Venipuncture / 06/28/2021 2:28 06/28/2021 2:28 Unknown PM CDT PM CDT Trevor Sahni MD LAB_1 Performing Organization Address City/[facility]/ZIP Code Phon e Number [facility] [address] [place] [address] (ABNORMAL) CBC -No Diff (06/28/2021 2:28 PM CDT) Patholo gist Method Time Signature WBC 9.2 3.5 - 10.5 06/28/2021 [facility] x10(9)/L 3:08 PM CDT LABORATORY RBC 3.29 (L) 3.90 - 06/28/2021 [facility] 5.03 3:08 PM CDT LAB[facility]AT[facility] x10(12)/L Hemoglobin 10.1 (L) 12.0 - 06/28/2021 [facility] 15.5 g/dL 3:08 PM CDT LABORATORY HCT 29.9 (L) 34.9 - 06/28/2021 [facility] 44.5 % 3:08 PM CDT LABORATORY MCV 90.9 80.0 - 06/28/2021 [facility] 100.0 fL 3:08 PM CDT LABORATORY MCH 30.7 27.6 - 06/28/2021 [facility] 33.3 pg 3:08 PM CDT LABORATORY MCHC 33.8 31.5 - 06/28/2021 [facility] 35.2 g/dL 3:08 PM CDT LABORATORY RDW 11.6 (L) 11.9 - 06/28/2021 [facility] 15.5 % 3:08 PM CDT LABORATORY Platelets 455 (H) 150 - 450 06/28/2021 [facility] x10(9)/L 3:08 PM CDT LABORATORY Automated NRBC 0 <=0 /100 06/28/2021 [facility] WBC 3:08 PM CDT LABORATORY Specimen Anatomical Collection Method / Collection Time Recei bessy Time (Source) Location / Volume Laterality Blood Venipuncture / 06/28/2021 2:28 06/28/2021 2:28 Unknown PM CDT PM CDT Trevor Sahni MD LAB_1 Performing Organization Address City/State/ZIP Code Phon e Number [facility] [address] [place] [address] (ABNORMAL) Comp Metabolic Panel (06/28/2021 2:28 PM CDT) [facility] Method Time Signature Sodium 142 136 - 145 06/28/2021 [facility] mmol/L 3:59 PM CDT LABORATORY Potassium 3.8 3.5 - 5.1 06/28/2021 [facility] mmol/L 3:59 PM CDT LABORATORY Chloride 102 98 - 109 06/28/2021 [facility] mmol/L 3:59 PM CDT LABORATORY CO2 27 20 - 29 06/28/2021 [facility] mmol/L 3:59 PM CDT LABORATORY Anion Gap 13 7 - 16 06/28/2021 [facility] mmol/L 3:59 PM CDT LABORATORY Calcium 10.4 8.4 - 10.4 06/28/2021 [facility] mg/dL 3:59 PM CDT LABORATORY BUN 28 (H) 7 - 26 06/28/2021 [facility] mg/dL 3:59 PM CDT LABORATORY Creatinine 0.70 0.55 - 06/28/2021 [facility] 1.02 mg/dL 3:59 PM CDT LABORATORY GFR, Estimated >60 >60 06/28/2021 [facility] mL/min/1.7 3:59 PM CDT LABORATORY 3m2 Alkaline 80 40 - 150 06/28/2021 [facility] Phosphatase U/L 3:59 PM CDT LABORATORY AST (SGOT) 18 10 - 40 06/28/2021 [facility] U/L 3:59 PM CDT LABORATORY ALT (SGPT) 20 0 - 55 U/L 06/28/2021 [facility] 3:59 PM CDT LABORATORY Bilirubin, Total 0.5 0.2 - 1.2 06/28/2021 [facility] mg/dL 3:59 PM CDT LABORATORY Protein, Total 8.2 6.4 - 8.3 06/28/2021 [facility] g/dL 3:59 PM CDT LABORATORY Albumin 4.4 3.5 - 5.0 06/28/2021 [facility] g/dL 3:59 PM CDT LABORATORY Glucose 104 (H) 70 - 100 06/28/2021 [facility] mg/dL 3:59 PM CDT LABORATORY Comment: The given reference range is fo r the fasting state. Non-fasting reference range for glucose is 70 - 180 mg/dL. Hours Fasting 3 06/28/2021 3:59 PM CDT [facility] Specimen Anatomical Collection Method / Collection Time Recei bessy Time (Source) Location / Volume Laterality Blood Venipuncture / 06/28/2021 2:28 06/28/2021 2:28 Unknown PM CDT PM CDT Trevor Sahni MD LAB_1 Performing Organization Address City/State/ZIP Code Phon e Number [facility] [address] [place] [address] documented in this encounter Visit Diagnoses Diagnosis Iritis Unspecified iridocyclitis Inflammatory spondylopathy of sacral reg ion (HRC) documented in this encounter Care Teams Kindergarten Teacher Relationship Specialty Start Date End Date Needs Pcp, Assignment PCP - General 06/28/21 [place] [address] documented as of this encounter
--- NOTE | 2022-02-26 09:15 | CRLHL7_ITS ---
For Patients: As a result of the Cures Act, medical imaging exams and procedure reports are released immediately into your electronic medical record. You may view this report before your referring provider. If you have questions, please contact your health care provider. BILATERAL DIGITAL SCREENING MAMMOGRAM WITH TOMOSYNTHESIS AND COMPUTER-AIDED DETECTION CLINICAL HISTORY: Routine screening exam. COMPARISON: 11/11/2018, 07/09/2017, 04/24/2015, 04/05/2014. TECHNIQUE: Digital mammogram in CC and MLO projections including computer-aided detection (CAD). Tomosynthesis utilized. BREAST COMPOSITION: The breasts are heterogeneously dense, which may obscure small masses. FINDINGS: RIGHT Breast: Nodular density within the lower breast at 6 o`clock 6 cm from the nipple. LEFT Breast: No suspicious findings. IMPRESSION: RIGHT breast asymmetry/mass. RECOMMENDATIONS: RIGHT breast ultrasound recommended. BI-RADS Category 0: Incomplete: Need Additional Imaging Evaluation and/or Prior Mammograms for Comparison [facility] will contact the patient for follow-up. A lay language report of this examination will be provided to the patient. Dictated by Pk Engle MD @ 02/26/2022 12:43:08 PM hawaj/Dictated by: Pk Engle MD @ 02/26/2022 12:43:00 PM (Electronically Signed)
== END 2022-02-26 09:00 | disposition home or self-care (01) ==
LOC: MAMMO 09:00
PROVIDERS: PCP Internal Medicine; Visit Provider Internal Medicine
DX: Z12.31 Encounter for screening mammogram for malignant neoplasm of breast (principal); N63.10 Unspecified lump in the right breast, unspecified quadrant
CPT/HCPCS: 77063; 77067

== ENCOUNTER 2022-03-01 08:00 | Outpatient (CLI) | payer OTHER, SELFPAY ==
--- NOTE | 2022-03-01 08:15 | CRLHL7_ITS ---
For Patients: As a result of the Century Cures Act, medical imaging exams and procedure reports are released immediately into your electronic medical record. You may view this report before your referring provider. If you have questions, please contact your health care provider. RIGHT BREAST ULTRASOUND CLINICAL HISTORY: RIGHT breast nodule. COMPARISON: 02/26/2022. TECHNIQUE: Real-time ultrasound imaging of RIGHT breast with imaging documentation. FINDINGS: Targeted RIGHT breast ultrasound performed at 6 o`clock 4 cm from the nipple. There is a hypoechoic circumscribed solid nodule measuring 8 x 5 x 7 millimeters. Increase through-transmission is present. IMPRESSION: Solid nodule RIGHT breast 6 o`clock 4 cm from the nipple measuring 8 x 5 x 7 millimeters. Probable fibroadenoma. RECOMMENDATIONS: Ultrasound-guided core needle biopsy recommended. Results and recommendations were discussed with the patient at the time of the exam. BI-RADS Category 4: Suspicious A lay language report of this examination will be provided to the patient. Dictated by Pk Engle MD @ 03/01/2022 9:55:57 AM jj/Dictated by: Pk Engle MD @ 03/01/2022 9:56:00 AM (Electronically Signed)
== END 2022-03-01 08:01 | disposition home or self-care (01) ==
LOC: US 08:00
PROVIDERS: PCP Internal Medicine; Visit Provider Internal Medicine
DX: N63.10 Unspecified lump in the right breast, unspecified quadrant (principal); R92.8 Other abnormal and inconclusive findings on diagnostic imaging of breast
CPT/HCPCS: 76642

== ENCOUNTER 2022-03-22 08:52 | Outpatient (CLI) | payer OTHER, SELFPAY ==
--- NOTE | 2022-03-22 09:15 | CRLHL7_ITS ---
For Patients: As a result of the Century Cures Act, medical imaging exams and procedure reports are released immediately into your electronic medical record. You may view this report before your referring provider. If you have questions, please contact your health care provider. ULTRASOUND-GUIDED BREAST BIOPSY AND POST-BIOPSY DIGITAL MAMMOGRAM FOR BIOPSY MARKER PLACEMENT CLINICAL HISTORY: Nodular density right breast COMPARISON STUDIES: 02/26/2022, 03/01/2022 TECHNIQUE: Real-time ultrasound with image documentation was used for targeting the breast lesion. Core biopsy specimens were obtained using an automated gun with a 18-gauge biopsy needle. Post-biopsy CC and ML digital mammograms were obtained to document position of the biopsy marker. CONSENT and TIME OUT: The procedure, risks, and alternatives were explained to the patient and a consent was signed. [place] Protocol was followed including pre-procedure verification that relevant information/documentation was available, reviewed and properly matched to the patient; consent accurate and complete; and equipment and supplies available. Time Out was conducted just prior to starting procedure to verify the four required elements: patient identity, correct side/site marked (if applicable), procedure, relevant images/results properly labeled and displayed (if applicable). PROCEDURE: The patient was positioned supine on the ultrasound table. The breast was prepped with ChloraPrep. 8 cc 1 percent lidocaine used for local anesthesia. Core samples were obtained. A sterile metal biopsy clip was placed percutaneously to renée the lesion position within the breast. The specimens were placed in 10% formalin and sent to the pathology department. Pressure was held on the biopsy site until all bleeding subsided. The skin incision was closed with Steri-Strips. An ice pack was positioned over the biopsy site. Post-biopsy instructions were reviewed with the patient, and a written copy was given to her. LATERALITY: Right breast LESION: Circumscribed hypoechoic solid nodule measuring 8 x 5 x 7 millimeters at 6 o`clock 4 cm from the nipple. SUSPICION FOR MALIGNANCY: Medium NUMBER OF SAMPLES: 5 BIOPSY CLIP SHAPE: Oval PROXIMITY OF CLIP TO TARGET: Within the lesion IMPRESSION: Ultrasound-guided breast biopsy. When the pathology report is available, an addendum to this report will be made. ACR not applicable Dictated by Pk Engle MD @ 03/22/2022 10:25:49 AM (Electronically Signed) ----ADDENDUM---- Pathology consistent with fibroadenoma. No atypia or malignancy. This is concordant. Resume annual screening mammography. Dictated by: Pk Engle MD @03/26/2022 12:15:59 PM Signed by:?Pk Engle MD @03/26/2022 1:23:04 PM (Electronic Signature)
--- NOTE | 2022-03-22 10:00 | CRLHL7_ITS ---
For Patients: As a result of the Century Cures Act, medical imaging exams and procedure reports are released immediately into your electronic medical record. You may view this report before your referring provider. If you have questions, please contact your health care provider. PLEASE SEE ULTRASOUND-GUIDED RIGHT BREAST BIOPSY PERFORMED SAME DAY CRL:rubin conklin/Dictated by: Pk Engle MD @ 03/22/2022 10:25:00 AM (Electronically Signed)
== END 2022-03-22 08:53 | disposition home or self-care (01) ==
LOC: US 08:52
PROVIDERS: PCP Internal Medicine; Visit Provider Internal Medicine
DX: N63.10 Unspecified lump in the right breast, unspecified quadrant (principal); D24.1 Benign neoplasm of right breast; R92.8 Other abnormal and inconclusive findings on diagnostic imaging of breast
CPT/HCPCS: 19083; 77065; 88305; 88341; 88342; A4648; A4649

== ENCOUNTER 2022-06-06 13:23 | Emergency (ER) | payer OTHER, SELFPAY ==
[2022-06-06 13:27] VITALS: BP 183/107; RESP 18; TEMP 36.6; O2SAT 100; BMI 27.1
--- NOTE | 2022-06-06 13:58 | ED.NECK ---
HPI - Neck Pain/Injury General Chief Complaint: Neck Injury/Pain Stated Complaint: Shoulders/neck pain, elevated heartrate Time Seen by Provider: 06/06/22 13:26 History of Present Illness HPI Narrative: This 56-year-old female comes in reporting severe posterior neck pain over the past couple days. She does not report any specific injury event but wonders if she did sleep on a position that it triggered these symptoms. She is not reporting any pain or altered sensation into either arm. She does not have a prior history of neck pain. He does have a history of gout. She states that she took a home test for her uric acid level today and this returned at 7. Related Data Home Medications Medication Instructions Recorded Confirmed metoprolol succinate 50 mg 50 mg PO DAILY 10/04/21 01/06/22 tablet,extended release 24 hr triamterene 37.5 1 tab PO DAILY 10/04/21 01/06/22 mg-hydrochlorothiazide 25 mg tablet Previous Rx's Medication Instructions Recorded gemfibrozil 600 mg tablet 600 mg PO BID Hyperlipidemia #180 10/09/21 tabs sulfamethoxazole 800 1 tab PO BID UTI #10 tabs 10/10/21 mg-trimethoprim 160 mg tablet (Bactrim DS) methylprednisolone 4 mg tablets in See Rx Instructions PO .COMPLEX 01/06/22 a dose pack (Medrol (Pankaj)) #21 ea methylprednisolone 4 mg tablets in See Rx Instructions PO PER PKG DIR 01/18/22 a dose pack (Medrol (Pankaj)) Iritis #21 ea allopurinol 100 mg tablet 100 mg PO QDAY Gout #90 tabs 02/09/22 ketorolac 10 mg tablet 10 mg PO Q8H Gout #30 tabs 03/06/22 cyclobenzaprine 10 mg tablet 10 mg PO TID #15 tabs 06/06/22 ketorolac 10 mg tablet 10 mg PO Q8H 5 days #15 tabs 06/06/22 methylprednisolone 4 mg tablets in See Rx Instructions PO .COMPLEX 06/06/22 a dose pack (Medrol (Pankaj)) #21 ea Allergies Allergy/AdvReac Type Severity Reaction Status Date / Time cephalexin Allergy Mild itchy, rash Verified 06/06/22 13:31 nitrofurantoin AdvReac Severe throat Verified 06/06/22 13:31 swelling Review of Systems Status of ROS: Reports: 10 or more systems reviewed and unremarkable except as noted in History and below Narrative: Constitutional: No fevers, no weight gain or loss. Eyes: No discharge. No vision changes. HENT: No congestion, no sore throat, no ear pain. Cardiovascular: No chest pain, no palpitations. Respiratory: No shortness of breath, no wheezes, no cough. Gastrointestinal: No abdominal pain, no vomiting, no diarrhea. Genitourinary: No dysuria, no hematuria. Musculoskeletal: Decreased range of motion of her neck due to pain and stiffness. Skin: No rashes, no pruritis. Neurological: No dizziness, weakness, sensory change, speech change. Endo/Heme/Allergies: No bruising or bleeding. No polydipsia. Pysch: no suicidality, no anxiety, no insomnia. All other systems reviewed and are negative. [facility] Medical History (Updated 06/06/22 @ 14:03 by Sandoval Krishnan MD) Gout ?M10.9 - Gout, unspecified (ICD-10) UTI (urinary tract infection) ?N39.0 - Urinary tract infection, site not specified (ICD-10) Family History (Updated 09/24/21 @ 13:51 by Shahzad Reyna) Other Colon cancer Social History Smoking Status: Never smoker Do you use any of these nicotine containing products: None Second hand tobacco smoke exposure: No How often do you have a drink containing alcohol: never How often do you have six or more drinks on one occasion: Never AUDIT-C Alcohol total score: 0 Non-prescribed substance use: denies use Exam Narrative: Exam Narrative: Constitutional: Well-developed, well-nourished, no acute distress. HEENT: Normocephalic, atraumatic. Neck: Normal range of motion. Nontender. Supple. Heart: Regular. No murmurs. Normal rate. Intact distal pulses. Lungs: Clear to auscultation. No chest discomfort. No wheezes, rhonchi, or rales. Abdomen: Normal bowel sounds. Nontender. No rebound tenderness. Genitalia: Deferred. Back: No midline tenderness when palpating along the neck and spine. Diffuse tenderness in the posterior neck laterally extending anteriorly. Decreased range of motion due to pain. Extremities: Normal range of motion. No injury. Skin: Intact. No rash. Warm. No erythema or pallor. Neurologic: No altered sensation. No weakness. Alert and oriented. Psychiatric: No suicidality. No anxiety or depression. No insomnia. Nursing notes and vitals signs are reviewed. Const: Vital Signs, click to edit/add: Vital Signs - 24 hr 06/06/22 13:27 Temperature 97.8 F Respiratory Rate 18 Blood Pressure [Ri ght Upper Arm] 183/107 H Pulse Oximetry 100 Oxygen Delivery Me thod Room Air Course Vital Signs Vital signs: Initial Vital Signs Temperature 97.8 F 06/06/22 13:27 Temperature Source Temporal Artery Scan 06/06/22 13:27 Respiratory Rate 18 06/06/22 13:27 Blood Pressure 183/107 H 06/06/22 13:27 Blood Pressure Mean 132 06/06/22 13:27 Blood Pressure Position Sitting 06/06/22 13:27 Pulse Oximetry 100 06/06/22 13:27 Oxygen Delivery Method Room Air 06/06/22 13:27 Vital Signs Temperature 97.8 F 06/06/22 13:27 Respiratory Rate 18 06/06/22 13:27 Blood Pressure 183/107 H 06/06/22 13:27 Pulse Oximetry 100 06/06/22 13:27 Oxygen Delivery Method Room Air 06/06/22 13:27 Temperature 97.8 F 06/06/22 13:27 Respiratory Rate 18 06/06/22 13:27 Blood Pressure 183/107 H 06/06/22 13:27 Pulse Oximetry 100 06/06/22 13:27 Oxygen Delivery Method Room Air 06/06/22 13:27 MDM - Neck Pain/Injury MDM Narrative Medical decision making narrative: This patient comes in reporting neck pain as described above. She did not have an injury event that mandates imaging at this time. I did nevertheless offer this and patient declined for now and will return if not improving. She did receive an intramuscular injection of morphine and prescriptions for Toradol, Flexeril, and Medrol Dosepak. She understands that we will not repeat narcotic treatments for symptoms like this in the SIRS a radiologic finding that indicates such need. I advised her to follow-up with her primary physician as needed or return if worsening. Discharge Plan Discharge Clinical Impression: Neck pain Patient Disposition: Home, Self-Care Condition: Stable Additional Instructions: Increase activity as tolerated. Use medications as needed and directed. Follow up with MD or return if worsening. Prescriptions: New cyclobenzaprine 10 mg tablet 10 mg PO TID Qty: 15 0RF ketorolac 10 mg tablet 10 mg PO Q8H 5 Days Qty: 15 0RF methylprednisolone [Medrol (Pankaj)] 4 mg tablets,dose pack See Rx Instructions .ROUTE .COMPLEX Qty: 21 0RF Rx Instructions: orally per package directions No Action sulfamethoxazole-trimethoprim [Bactrim DS] 800-160 mg tablet 1 tab PO BID Qty: 10 0RF metoprolol succinate 50 mg tablet extended release 24 hr 50 mg PO DAILY triamterene-hydrochlorothiazid 37.5-25 mg tablet 1 tab PO DAILY methylprednisolone [Medrol (Pankaj)] 4 mg tablets,dose pack See Rx Instructions .ROUTE .COMPLEX Qty: 21 0RF Rx Instructions: orally per package directions gemfibrozil 600 mg tablet 600 mg PO BID Qty: 180 3RF methylprednisolone [Medrol (Pankaj)] 4 mg tablets,dose pack See Rx Instructions PO PER PKG DIR Qty: 21 2RF Rx Instructions: PO PER PKG DIR allopurinol 100 mg tablet 100 mg PO QDAY Qty: 90 3RF ketorolac 10 mg tablet 10 mg PO Q8H Qty: 30 0RF Follow Up/Referrals: Charli Almanzar MD [Primary Care Provider] - Stand Alone Forms: [facility] Info Instructions
[2022-06-06] MEDS: MORPHINE 10 MG/ML inj IM (14:04)
== END 2022-06-06 14:29 | disposition home or self-care (01) ==
LOC: ED 14:06
PROVIDERS: Emergency Provider Emergency Medicine Emergency Medical Services; PCP Internal Medicine
DX: M54.2 Cervicalgia (principal)
CPT/HCPCS: 96372; 99283; 99284; J2270

== ENCOUNTER 2022-07-16 08:42 | Outpatient (CLI) | payer OTHER, SELFPAY | END 2022-07-16 08:43 | disposition home or self-care (01) | PROVIDERS: PCP Internal Medicine; Visit Provider Internal Medicine | DX: M10.9 Gout, unspecified (principal); E78.1 Pure hyperglyceridemia; N39.0 Urinary tract infection, site not specified; Z13.6 Encounter for screening for cardiovascular disorders | CPT/HCPCS: 80053; 80061; 86039 ==

== ENCOUNTER 2022-10-17 14:53 | Outpatient (CLI) | payer OTHER, SELFPAY | END 2022-10-17 14:54 | disposition home or self-care (01) | PROVIDERS: PCP Internal Medicine; Visit Provider Nurse Practitioner Family | DX: M54.9 Dorsalgia, unspecified (principal); M10.9 Gout, unspecified; R53.83 Other fatigue; E78.1 Pure hyperglyceridemia | CPT/HCPCS: 80053; 82150; 83690; 85651; 86140 ==

== ENCOUNTER 2022-10-29 08:26 | Outpatient (CLI) | payer OTHER, SELFPAY ==
--- NOTE | 2022-10-29 09:00 | CRLHL7_ITS ---
For Patients: As a result of the Century Cures Act, medical imaging exams and procedure reports are released immediately into your electronic medical record. You may view this report before your referring provider. If you have questions, please contact your health care provider. Indication: LT sided intermittent back and abdominal pain x 2 years with some abdominal swelling at times Technique: Postcontrast CT abdomen and pelvis. 75 cc Isovue 370 intravenous contrast. Please note that all CT scans at this facility use dose modulation, iterative reconstruction, and/or weight-based dosing when appropriate to reduce radiation dose to as low as reasonably achievable. Comparison: 12/13/2011 Findings: Benign calcification noted within the right breast tissue. Mild scarring is present within both lung bases. Emphysema suspected. No free intraperitoneal air. A simple cyst is present within the left hepatic lobe which measures 1.2 cm. This is unchanged. An additional area decreased attenuation within the inferior liver is similar to the prior study measuring 1 cm and is considered benign. Diffuse fatty infiltration of the liver noted with a small focal area of fat deposition adjacent to the falciform ligament. The liver is also upper limits of normal in size measuring 19.1 cm. The spleen is normal and measures 10.2 cm. Normal adrenal glands. The left kidney is normal. A simple cyst is present at the right kidney measuring 3.2 cm. The pancreas is normal. Mild atherosclerotic changes are present. No aortic aneurysm. Subcentimeter left periaortic lymph node noted. No enlarged retroperitoneal or mesenteric lymph nodes. The bladder is normal. Tubal ligation devices are again noted. Uterine fibroids are present. Small cyst within the right ovary is unchanged. No adnexal mass or pelvic free fluid. The ureters are normal. No pelvic or inguinal adenopathy. No bowel obstruction. No inflammatory changes. No fracture. Impression: The liver is upper limits of normal in size. Mild diffuse hepatic steatosis. Incidental simple cyst right kidney measuring 3.2 cm. Please note that all CT scans at this facility use dose modulation, iterative reconstruction, and/or weight-based dosing when appropriate to reduce radiation dose to as low as reasonably achievable. Dictated by Pk Engle MD @ 10/29/2022 12:55:27 PM (Electronically Signed)
== END 2022-10-29 08:27 | disposition home or self-care (01) ==
LOC: CT 08:27
PROVIDERS: PCP Internal Medicine; Visit Provider Nurse Practitioner Family
DX: M54.9 Dorsalgia, unspecified (principal); K76.0 Fatty (change of) liver, not elsewhere classified; N28.1 Cyst of kidney, acquired; R10.9 Unspecified abdominal pain
CPT/HCPCS: 74177; Q9967

== ENCOUNTER 2023-07-31 07:46 | Outpatient (CLI) | payer OTHER, SELFPAY ==
--- OUTSIDE RECORDS SUMMARY | 2023-08-01 12:35 | XMS_ITS | Clinical Summary ---
Author Name Unknown Organization [facility] Address [address] [place] [address] Care Team Providers Care Gasoline Finisher Name Role Phone Needs Pcp, Assignment Primary Care Provider [phone] Source Comments You are receiving this document as you are listed as the primary care provider,follow-up provider, or the patient has been referred to you for consultation.This is in compliance with the Medicare andMedicaid EHR Incentive Program,which states Providers who transition their patient to another setting of careor provider of care or refers their patient to another provider of care shouldprovide summary care record for each transition of care or referral. [facility] Allergies Active Allergy Reactions Criticality Noted Date Comments Cephalexin Rash,Other, see comments Low 10/16/2007 Dizzy, felt ill, and very emotional Nitrofurantoin Rash,Anaphylaxis High 10/29/2007 Swelling and rash Medications Medication Sig Dispensed Refills Start Date End Date Status gemfibrozil (LOPID) 600 MG tablet Take 1 Tablet by mouth two times a day. 02/26/2021 Active metoprolol succinate (TOPROL XL) 50 MG 24 hour release tablet Take 50 mg by mouth daily. 06/09/2021 Active triamterene-hydrochlor othiazide (MAXZIDE-25) 37.5-25 MG tablet Take 1 Tablet by mouth daily. 04/24/2021 Active Active Problems Problem Noted Date Diagnosed Date Iritis 06/28/2021 Hypertriglyceridemia 06/28/2021 Immunizations Name Administration Dates Next Due Flu Vac (3+ yrs) 11/25/2008 Fluzone Qiv Multidose Vial 0 .25 (6-35 Mos) 12/27/2020,12/14/2018,01/27/2018, 017,12/07/2015 Influenza IIV4 (Quadrivalent ) 0.5mL (79343) 12/27/2020,11/27/2019,12/14/2018, 018,12/14/2016,12/07/2015 Moderna Monovalent 12+ 02/05/2021,07/05/2020, Tdap 07/09/2017 Social History Tobacco Use Types Packs/Day Years Used Date Smoking Tobacco: Never Smokeless Tobacco: Never Sex and Gender Information Value Date Recorded Sex Assigned at Not on file Gender Identity Not on file Sexual Orientation Not on file Plan of Treatment Health Maintenance Due Date Last Done Comments Cervical Cancer Screening Due 1965 Colon Cancer Screening Plan Due 1965 Hep C Screening (Preventive Services) 1965 Mammogram 1965 HIV Screening (Preventive Services) 1979 Adult Preventive Visit 11/21/1981 HepB (1) 11/21/1982 Cholesterol 11/21/2008 Zoster/Shingles (1 of 2) 11/21/2013 COVID-19 Vaccine ( season) 2022 02/05/2021, 07/05/2020, 06/09/2020 Influenza (Season Ended) 2023 021, 12/27/2020, 11/27/2019, Additional history exists DTaP/Tdap/Td (2 - Tdap) 07/10/2027 07/09/2017 HepA Aged Out No longer eligi ble based on patient's age to complete this topic Hib Aged Out No longer eligi ble based on patient's age to complete this topic IPV (Polio) Aged Out No longer eligi ble based on patient's age to complete this topic MCV4 Aged Out No longer eligi ble based on patient's age to complete this topic Pneumococcal Aged Out No longer eligi ble based on patient's age to complete this topic Care Teams Gasoline Finisher Relationship Specialty Start Date End Date Needs Pcp, [place] [address] PCP - General 06/28/21
== END 2023-07-31 07:47 | disposition home or self-care (01) ==
LOC: NFLDREF 08-01 12:33
PROVIDERS: PCP Internal Medicine; Referring Provider Internal Medicine; Visit Provider Internal Medicine
DX: Z00.00 Encounter for general adult medical examination without abnormal findings (principal); E78.1 Pure hyperglyceridemia
CPT/HCPCS: 80053; 80061

== ENCOUNTER 2024-06-17 10:03 | Outpatient (CLI) | payer OTHER, SELFPAY | END 2024-06-17 10:04 | disposition home or self-care (01) | PROVIDERS: PCP Internal Medicine; Visit Provider Internal Medicine | DX: E78.1 Pure hyperglyceridemia (principal); Z13.29 Encounter for screening for other suspected endocrine disorder | CPT/HCPCS: 80053; 84443 ==

== ENCOUNTER 2024-06-21 08:05 | Outpatient (CLI) | payer OTHER, SELFPAY | END 2024-06-21 08:06 | disposition home or self-care (01) | LOC: NFLDREF 06-24 20:44 | PROVIDERS: PCP Internal Medicine; Referring Provider Internal Medicine; Visit Provider Internal Medicine | DX: R74.01 Elevation of levels of liver transaminase levels (principal) | CPT/HCPCS: 84450; 84460 ==

== ENCOUNTER 2024-06-30 08:06 | Outpatient (CLI) | payer OTHER, SELFPAY | END 2024-06-30 08:07 | disposition home or self-care (01) | LOC: NFLDREF 07-02 18:00 | PROVIDERS: PCP Internal Medicine; Referring Provider Internal Medicine; Visit Provider Internal Medicine | DX: R74.01 Elevation of levels of liver transaminase levels (principal) | CPT/HCPCS: 84450; 84460 ==

== ENCOUNTER 2024-07-21 08:05 | Outpatient (CLI) | payer OTHER, SELFPAY ==
--- NOTE | 2024-07-21 08:15 | CRLHL7_ITS ---
For Patients: As a result of the Century Cures Act, medical imaging exams and procedure reports are released immediately into your electronic medical record. You may view this report before your referring provider. If you have questions, please contact your health care provider. INDICATION: BILATERAL SCREENING MAMMOGRAM, ASYMPOTMATIC 58 Y/0 FEMALE COMPARISON: 03/22/22, 02/26/22, 11/12/18 TECHNIQUE: CC and MLO views were obtained. These mammographic images have been obtained using full-field digital technique. These mammographic images were interpreted with the benefit of computer aided detection and tomosynthesis. BREAST COMPOSITION: The breasts are heterogeneously dense, which may obscure small masses. FINDINGS: No suspicious findings. ASSESSMENT: BI-RADS 2 Benign RECOMMENDATION: Annual screening mammogram. A lay language report of this examination will be provided to the patient. Dictated by: Pk Engle MD @ 07/21/2024 09:39:48 (Electronically Signed)
== END 2024-07-21 08:06 | disposition home or self-care (01) ==
LOC: MAMMO 08:06
PROVIDERS: PCP Internal Medicine; Visit Provider Internal Medicine
DX: Z12.31 Encounter for screening mammogram for malignant neoplasm of breast (principal); R92.333 Mammographic heterogeneous density, bilateral breasts
CPT/HCPCS: 77063; 77067

== ENCOUNTER 2024-10-21 07:40 | Outpatient (CLI) | payer OTHER, SELFPAY | END 2024-10-21 07:41 | disposition home or self-care (01) | LOC: NFLDREF 10-25 15:11 | PROVIDERS: PCP Internal Medicine; Referring Provider Internal Medicine; Visit Provider Internal Medicine | DX: E78.1 Pure hyperglyceridemia (principal) | CPT/HCPCS: 80053; 80061 ==